=== PATIENT | female | born 1940 | race Caucasian/White ===

== ENCOUNTER 2019-09-24 04:36 | Inpatient (IN) | payer MEDICARE, SELFPAY ==
[2019-09-24 05:08] LABS: #Eosinphils 0.1 thou/uL (0.0-0.7); #Lymphocytes 0.6 thou/uL (1.20-3.40); #Monocytes 0.1 thou/uL (0.11-0.59); #Neutrophils 4.2 thou/uL (1.40-6.50); %Eosinophils 1.1 % (0.0-10.0); %Lymphocytes 12.8 % (21.0-51.0); %Monocytes 2.7 % (0.0-10.0); %Neutrophils 83.4 % (42.0-75.0); Hemoglobin 11.2 g/dL (12.0-16.0); Mean Corpuscular HGB CONC 33.3 g/dL (32.0-36.0); Mean Corpuscular Hemoglobin 31.6 pg (27.0-31.0); Mean Corpuscular Volume 94.8 fL (78.0-98.0); Mean Platelet Volume 7.1 fL (7.4-10.4); Platelet Count 323 thou/uL (130-400); RBC Distribution Width 12.9 % (11.5-14.5); Red Blood Cell (RBC) Count 3.54 mill/uL (4.20-5.40)
[2019-09-24 05:20] LABS: ALT (SGPT) Less than 7 U/L (8-55); AST (SGOT) 16 U/L (5-34); Albumin 3.3 g/dL (3.4-4.8); Alkaline Phosphatase 67 U/L (40-110); Anion Gap 13 mmol/L (10-20); BUN (Urea Nitrogen) 9 mg/dL (9.8-20.1); Bilirubin, Total 0.8 mg/dL (0.2-1.2); Calc. Creatinine Clearance 0 mL/min (70-130); Calcium 8.6 mg/dL (7.8-10.44); Carbon Dioxide 24 mmol/L (23-31); Chloride 103 mmol/L (98-107); Estimated GFR-MDRD 74; Globulin 3.5 g/dL (2.4-3.5); Glucose 121 mg/dL (83-110); Potassium 3.6 mmol/L (3.5-5.1); Protein, Total 6.8 g/dL (6.0-8.3); Sodium 136 mmol/L (136-145)
[2019-09-24] MEDS ORDERED: Piperacillin/Tazobactam 3.375 GM VIAL ONE ×3 (06:19→12:23)
[2019-09-24] MEDS ORDERED: Fentanyl 100 MCG/2 ML VIAL ONE ×2 (06:19→10:27)
--- NOTE | 2019-09-24 08:23 | CT ---
CT OF THE CHEST WITH CONTRAST CT OF THE ABDOMEN AND PELVIS WITH CONRAST: HISTORY: Shortness of breath, right rib pain, and abdominal pain. TECHNIQUE: 1. Multiple contiguous axial images were obtained in a CT of the chest with contrast. Sagittal and coronal reformats were performed. 2. Multiple contiguous axial images were obtained in a CT of the abdomen and pelvis with contrast. Sagittal and coronal reformats were performed. FINDINGS: CT CHEST: Severe emphysematous changes are seen in the lungs. No focal infiltrates are seen. No suspicious pu lmonary mass is seen. No pneumothorax or pleural effusions are seen. The bones of the chest and chest wall soft tissues are unremarkable. CT ABDOMEN/PELVIS: A moderate amount of free air is seen scattered throughout the abdomen. There is a small amount of f ree fluid in the pelvis which has a questionable rim around it and could be loculated fluid. The sma ll bowel is normal in caliber without significant distention. There is a focal collection of air cheri t is nondependent adjacent to the duodenum. The stomach is normal in size. The colon is normal in a ppearance. The liver, gallbladder, kidneys, adrenal glands, spleen, and pancreas are unremarkable. Atherosclero tic calcifications are seen in the aorta. No abdominal or pelvic lymphadenopathy is seen. There is a 1.5 cm hypodensity along the left pelvic sidewall which could represent a cyst/follicle in the left ovary. The uterus is not seen and may have been removed. Degenerative changes are seen in the spine. The abdominal wall soft tissues are unremarkable. IMPRESSION: 1. Severe emphysema without acute intrathoracic abnormality. 2. There is free air in the abdomen most likely secondary to a perforated viscous. The cause for th is perforation is uncertain. However, there is a collection of air adjacent to the duodenum and a pe rforated gastric or duodenal ulcer is a possibility. Dr. Wade notified of the findings at 6:09 a.m. on 09/24/2019. CODE CR
--- NOTE | 2019-09-24 08:57 | RAD ---
EXAM: Single view of the chest HISTORY: Free air in the abdomen on CT COMPARISON: CT abdomen/pelvis 09/24/2019 FINDINGS: Single view of the chest shows a normal sized cardiomediastinal silhouette. Free air is se en beneath both hemidiaphragms. There is no evidence of consolidation, mass, or pleural effusion. The bones are unremarkable. IMPRESSION: 1. No evidence of acute cardiopulmonary disease 2. Free air beneath both hemidiaphragms
[2019-09-24] MEDS ORDERED: Pantoprazole 40 MG VIAL IVP SCH (09:15)
[2019-09-24] MEDS ORDERED: Ondansetron PF 4 MG/2 ML Vial ONE (09:32)
[2019-09-24] MEDS ORDERED: Dexamethasone 20 MG/5 ML VIAL ONE (09:32)
[2019-09-24] MEDS ORDERED: Rocuronium Bromide 10 MG/ML (10ML VIAL) ONE (09:32)
[2019-09-24] MEDS ORDERED: PHENYLEPHRINE-NS 100 MCG/ML 10 ML SYRINGE ONE (09:32)
[2019-09-24] MEDS ORDERED: Succinylcholine Chloride 20 MG/ML 10 ml SYRINGE FS ONE (09:32)
[2019-09-24] MEDS ORDERED: Lidocaine 1% PF 5 ML VIAL ONE (09:32)
[2019-09-24] MEDS ORDERED: PROPOFOL 200 MG/20 ML VIAL ONE (09:32)
[2019-09-24] MEDS ORDERED: Bupivacaine 0.25% HCL 30 ML VIAL ONE (10:26)
[2019-09-24] MEDS ORDERED: Lidocaine 1% w/Epinephrine 1:100K 20 ML VIAL ONE (10:26)
[2019-09-24] MEDS ORDERED: Sodium Chloride 0.9% 30 ML ONE (10:40)
[2019-09-24] MEDS ORDERED: Phenylephrine 10 MG/ML VIAL ONE (11:17)
[2019-09-24] MEDS ORDERED: Meperidine HCl/PF 25 MG/ML VIAL SLOW IVP PRN (12:46)
[2019-09-24] MEDS ORDERED: Promethazine HCl 25 MG/ML VIAL SLOW IVP PRN (12:46)
[2019-09-24] MEDS ORDERED: SUGAMMADEX SODIUM 500 MG/5 ML VIAL ONE (12:54)
[2019-09-24] MEDS ORDERED: Lorazepam 2 MG/ML VIAL SLOW IVP PRN (13:48)
[2019-09-24] MEDS ORDERED: Dextrose 5% in Water 1,000 ML IV PRN (13:48)
[2019-09-24] MEDS ORDERED: Ondansetron PF 4 MG/2 ML Vial IVP PRN (13:48)
[2019-09-24] MEDS ORDERED: Dextrose 50% Abboject 50 ML SYRINGE SLOW IVP PRN (13:48)
[2019-09-24] MEDS ORDERED: hydrALAZINE 20 MG/ML VIAL SLOW IVP PRN (13:48)
[2019-09-24] MEDS ORDERED: Iopamidol 370 76% 100 ML VIAL ONE (13:51)
--- NOTE | 2019-09-24 14:01 | RAD ---
EXAM: Single view of the abdomen HISTORY: Status post exploratory laparotomy for free air. COMPARISON: CT abdomen/pelvis 09/24/2019 FINDINGS: Single view of the abdomen shows a nonspecific, nonobstructive bowel gas pattern. An NG tub e is seen in the stomach. A drain is seen in the upper abdomen. Contrast is seen in the urinary collecting system from recent CT. No suspicious calcifications are seen. The bones are unremarkable . IMPRESSION: Nonobstructive bowel gas pattern.
--- NOTE | 2019-09-24 14:02 | RAD ---
EXAM: Chest one view: HISTORY: Status post exploratory lap. COMPARISON: 09/24/2019 FINDINGS: NG tube and right subclavian catheter is in place. Hyperinflation and chronic appearing linear and interstitial markings bilaterally. Heart size: Within normal limits. Lungs: Clear of acute process. No evidence for confluent pneumonia, pleural effusion, acute edema, or pneumothorax, or other signifi cant acute process. IMPRESSION: NG tube and right central line in place. No pneumothorax or other acute process.
[2019-09-24] MEDS ORDERED: D5 1/2 NS w/20 mEq KCL 1,000 ML ONE (14:28)
[2019-09-24] MEDS ORDERED: Calcium Chloride 1 GM/10 ML Abboject SYRINGE ONE (14:38)
--- NOTE | 2019-09-24 16:18 | CON ---
DATE OF CONSULTATION: HISTORY OF PRESENT ILLNESS: Ms. Soler is a 79-year-old female who was admitted with perforated ulcer. She has undergone surgical repair. She is coming to the ICU. I examined her in recovery room. She has been extubated. PAST MEDICAL HISTORY: Remarkable for COPD, asthma, hypertension, and an appendectomy, smoker, pack-a-day. Not a daily drinker. ALLERGIES: THERE ARE NO DRUG ALLERGIES REPORTED. REVIEW OF SYSTEMS: Not obtainable as she is still somnolent from surgery. PHYSICAL EXAMINATION: VITAL SIGNS: Blood pressure is 120 systolic range. Heart rates less than 100, respiratory rate is in the teens. GENERAL: She looks much older than her age. HEENT: Pupils are equal. Sclerae are anicteric. NECK: Without lymphadenopathy. LUNGS: Remarkable for distant breath sounds. She is very cachectic appearing. She is not wheezing. HEART: Regular rhythm. ABDOMEN: Postoperatively distended. EXTREMITIES: Without clubbing, cyanosis, or edema. NEURO: Cannot be assessed. IMPRESSION: Status post perforated ulcer requiring semi-emergent surgery. She will be observed in the Critical Care Unit, appears to be stable at this time. Job ID: [id number] [facility]
[2019-09-24] MEDS: D5 1/2 NS w/20 mEq KCL 1,000 ML IV SCH ×2 (17:34→21:43)
[2019-09-24] MEDS: Sodium Chloride 0.9% 1,000 ML IV SCH ×2 (17:34→21:15)
[2019-09-24] MEDS: Fluconazole In NaCl,Iso-Osm 400 MG in Premix Bag 1 BAG IVPB SCH (18:36)
[2019-09-24] MEDS: Pantoprazole 40 MG VIAL IVP SCH (21:43)
[2019-09-24] MEDS ORDERED: Sodium Chloride 0.9% 1,000 ML IV SCH (21:45)
--- NOTE | 2019-09-24 22:20 | OP ---
DATE OF PROCEDURE: 09/24/2019 PREOPERATIVE DIAGNOSIS: Perforated viscus. POSTOPERATIVE DIAGNOSIS: Perforated peptic ulcer disease in the pyloric channel. PROCEDURE PERFORMED: Exploratory laparoscopy with laparoscopic repair of perforated pyloric channel ulcer with omental patch, extensive washout of diffuse peritonitis, placement of intraabdominal drain, placement of right subclavian 7-Turkish triple-lumen central line. ANESTHESIA: General endotracheal. INDICATIONS: The patient is a 79-year-old white female. She had presented to the emergency room with acute abdominal pain. CT scan shows extensive intraabdominal air and fluid consistent with perforated bowel. Based on her presentation, I suspected this was the perforated peptic ulcer. She was taken to the operating room at this time for planned laparoscopy with attempt to identify and repair the problems laparoscopically. DESCRIPTION OF OPERATION: Informed consent was obtained and patient was taken to the operating room, where general endotracheal anesthesia was obtained with the patient in supine position. She had been hypotensive preoperatively and she was being put to sleep. I decided to place a central line for appropriate IV access, as well as postoperative monitoring. A right subclavian 7-Turkish triple-lumen central line was placed uneventfully using modified Seldinger technique. Each of the three lumens aspirated blood freely and was flushed with heparinized saline. The catheter was secured at the exit site with 3-0 silk suture and sterile occlusive dressing was placed. Abdomen was prepped with ChloraPrep and draped in sterile fashion. Local anesthetic was infiltrated using a mixture of 0.5% Marcaine and 1% lidocaine with epinephrine. Three 5 mm ports were placed, one at the umbilicus and one on either side of midline. Attention was turned within the abdominal cavity. There was diffuse peritonitis recognized. There was extensive fibrinous debris in the pelvis as well as the right upper quadrant, left upper quadrant and the subhepatic space. The intraabdominal fluid was aspirated and the fibrinous debris was removed to the extent that it was easy. Some of the fluid was aspirated and sent for culture. About 1 L of fluid was removed in total. I then elevated the left lobe of the liver and fairly quickly identified the perforation in the distal stomach and approximately the pyloric channel. This ulcer appeared to be about 6 or 7 mm in diameter with obvious clear borders. I placed a 4th port in the right lower abdomen. The left lobe of the liver was elevated using a grasper, held in place with a Vasu's arm. Her liver was clearly fibrotic and cirrhotic. The ulcer was closed with four interrupted sutures of 3-0 silk. The omentum was easily reflected up into the upper abdomen. A corner of the right side of the omentum was secured over the ulcer repair site and it was tacked in place with 3 additional sutures of 3-0 silk. The abdominal cavity was then irrigated with 6 L of saline. All irrigant was aspirated. A #19 round fluted drain was then brought out through the right lower port site, where it was secured with a 3-0 nylon suture. It was then passed up over the repair site in the subhepatic space. All ports and instruments were removed under direct vision. Pneumoperitoneum was carefully evacuated. 0.25% Marcaine with epinephrine was infiltrated at each port site. Skin edges approximated with 4-0 Monocryl subcuticular suture. Dermabond was placed externally and a gauze dressing was placed over the drain site. Nasogastric tube and Gabriel catheter were left in place. The patient was taken to recovery room and extubated in stable condition. Job ID: [id number]
[2019-09-25] MEDS: Sodium Chloride 0.9% 1,000 ML IV SCH ×2 (00:50→05:24)
[2019-09-25 03:33] LABS: #Lymphocytes 0.2 thou/uL (1.20-3.40); #Monocytes 0.3 thou/uL (0.11-0.59); #Neutrophils 3.8 thou/uL (1.40-6.50); %Basophils 0.3 % (0.0-1.0); %Eosinophils 0.1 % (0.0-10.0); %Lymphocytes 5.1 % (21.0-51.0); %Monocytes 5.8 % (0.0-10.0); %Neutrophils 88.7 % (42.0-75.0); Mean Corpuscular HGB CONC 32.9 g/dL (32.0-36.0); Mean Corpuscular Hemoglobin 31.9 pg (27.0-31.0); Mean Corpuscular Volume 96.9 fL (78.0-98.0); Platelet Count 132 thou/uL (130-400); RBC Distribution Width 12.8 % (11.5-14.5); Red Blood Cell (RBC) Count 2.49 mill/uL (4.20-5.40); White Blood Cell (WBC) Count 4.3 thou/uL (4.8-10.8)
[2019-09-25 03:59] LABS: ALT (SGPT) Less than 7 U/L (8-55); AST (SGOT) 17 U/L (5-34); Albumin 2.3 g/dL (3.4-4.8); Alkaline Phosphatase 35 U/L (40-110); Anion Gap 7 mmol/L (10-20); BUN (Urea Nitrogen) 11 mg/dL (9.8-20.1); Bilirubin, Total 0.5 mg/dL (0.2-1.2); Calc. Creatinine Clearance 51 mL/min (70-130); Calcium 7.9 mg/dL (7.8-10.44); Carbon Dioxide 23 mmol/L (23-31); Chloride 109 mmol/L (98-107); Estimated GFR-MDRD 77; Globulin 2.5 g/dL (2.4-3.5); Glucose 132 mg/dL (83-110); Potassium 4.1 mmol/L (3.5-5.1); Protein, Total 4.8 g/dL (6.0-8.3); Sodium 135 mmol/L (136-145)
[2019-09-25] MEDS: D5 1/2 NS w/20 mEq KCL 1,000 ML IV SCH ×3 (06:23→18:00)
--- NOTE | 2019-09-25 08:21 | RAD ---
EXAM: CHEST ONE VIEW HISTORY: COPD. Follow-up evaluation. COMPARISON: 09/24/2019 FINDINGS: Nasogastric tube and right subclavian catheter remain in place. Linear metallic density overlies the medial right upper lung zone which may be related to overlying artifact. Cardiac silhouette and pulmonary vasculature are within normal limits. There are persistent increased interstitial markings within the lungs bilaterally. Vascular calcifications are seen in the thoracic aorta. Osteopenia is present. No other interval change. IMPRESSION: 1. Mild increase in interstitial markings is overall nonspecific and could be related to mild chronic lung changes. However, an element of mild pulmonary edema or infectious process is a possibility. 2. Nasogastric tube in place. 3. Right subclavian central venous catheter in place which may be related to a Mediport. 4. Osteopenia.
[2019-09-25] MEDS: Pantoprazole 40 MG VIAL IVP SCH ×2 (08:35→21:25)
[2019-09-25] MEDS: Enoxaparin Sodium 30 MG/0.3 ML SYRINGE SC SCH (08:35)
[2019-09-25] MEDS ORDERED: FLU VACC TS2019-20(65YR UP)/PF 180 MCG/0.5 ML SYRINGE IM ONE (09:00)
[2019-09-25] MEDS ORDERED: Morphine 4 MG/ML VIAL SLOW IVP SCH (09:30)
[2019-09-25] MEDS ORDERED: Morphine 4 MG/ML VIAL SLOW IVP PRN (10:51)
--- NOTE | 2019-09-25 12:07 | PRG ---
DATE OF SERVICE: 09/25/2019 SUBJECTIVE: Ms. Soler has no new complaints. OBJECTIVE: VITAL SIGNS: She is afebrile, heart rate is in the 70s, blood pressure 113/38, respiratory rate is in the teens . Lungs are clear. Heart regular rhythm. Abdomen is mildly tender. Extremities without asymmetry or edema. Neuro is nonfocal. LABORATORY DATA: White count 4.3, hemoglobin 8.0, platelets 132. Sodium 135, potassium 4.1, chloride 109, bicarb 23, BUN 11 and creatinine 0.73. IMPRESSION: 1. Blood loss anemia. 2. ? chronic obstructive pulmonary disease. 3. Status post laparoscopy for perforated ulcer. 4. Cultures have been reviewed. 5. She has grown a yeast out of her peritoneal fluid and fluconazole is already on board. 6. She appears surprisingly stable. Job ID: [id number] [facility]
[2019-09-25] MEDS ORDERED: CEFAZOLIN 1 GM in Sodium Chloride 0.9% 100 ML IVPB SCH (14:45)
--- NOTE | 2019-09-25 15:04 | PRG ---
DATE OF SERVICE: 09/25/2019 SUBJECTIVE: Ms. Soler is postoperative day #1 from a laparoscopic repair of perforated duodenal ulcer with an omental patch. A drain was left at the time of surgery. This has continued to drain fluid. It is light pink and opaque. There was 340 mL out overnight. She has no complaints other than thirst and hunger. She notes that her abdominal pain is much better. OBJECTIVE: VITAL SIGNS: Temperature is 98.2, pulse is 56, and blood pressure is 103/46. LUNGS: Clear to auscultation, although she coughs with deep breath. HEART: Regular rate and rhythm without murmur. ABDOMEN: Soft. Bowel sounds are present, but hypoactive. Incisions are healing nicely. LABORATORY DATA: Her white blood cell count is 4.3, hemoglobin is 8.0, and platelet count is 132. All of these values are likely related to dilution. There was essentially no blood loss during the surgery. Chemistry profile reveals electrolytes with minimal irregularity or abnormality. ASSESSMENT AND PLAN: The patient is medically stable. We will continue all current therapy, except I will remove her nasogastric tube and her Gabriel catheter. She is stable for transfer to the surgical floor. Continue to encourage ambulation with physical therapy. I will allow her to continue to have ice chips for now, and if she has better bowel sounds on examination, then may be clear liquids tomorrow. Job ID: [id number]
[2019-09-25] MEDS: Morphine 2 MG/ML SYRINGE SLOW IVP PRN (15:12)
[2019-09-25] MEDS: Fluconazole In NaCl,Iso-Osm 400 MG in Premix Bag 1 BAG IVPB SCH (17:59)
[2019-09-25] MEDS: CEFAZOLIN 1 GM in Sodium Chloride 0.9% 100 ML IVPB SCH (21:25)
[2019-09-26] MEDS: D5 1/2 NS w/20 mEq KCL 1,000 ML IV SCH (04:54)
[2019-09-26 05:38] LABS: #Lymphocytes 0.3 thou/uL (1.20-3.40); #Monocytes 0.3 thou/uL (0.11-0.59); #Neutrophils 4.5 thou/uL (1.40-6.50); %Basophils 0.4 % (0.0-1.0); %Eosinophils 0.3 % (0.0-10.0); %Lymphocytes 5.2 % (21.0-51.0); %Neutrophils 88.1 % (42.0-75.0); Hemoglobin 7.5 g/dL (12.0-16.0); Mean Corpuscular HGB CONC 32.6 g/dL (32.0-36.0); Mean Corpuscular Hemoglobin 31.3 pg (27.0-31.0); Mean Platelet Volume 7.4 fL (7.4-10.4); Platelet Count 137 thou/uL (130-400); Red Blood Cell (RBC) Count 2.39 mill/uL (4.20-5.40); White Blood Cell (WBC) Count 5.1 thou/uL (4.8-10.8)
[2019-09-26] MEDS: CEFAZOLIN 1 GM in Sodium Chloride 0.9% 100 ML IVPB SCH (05:52)
[2019-09-26] MEDS: Morphine 2 MG/ML SYRINGE SLOW IVP PRN ×3 (05:52→18:21)
[2019-09-26 06:40] LABS: Anion Gap 7 mmol/L (10-20); BUN (Urea Nitrogen) 9 mg/dL (9.8-20.1); Calc. Creatinine Clearance 59 mL/min (70-130); Calcium 7.9 mg/dL (7.8-10.44); Carbon Dioxide 22 mmol/L (23-31); Chloride 109 mmol/L (98-107); Estimated GFR-MDRD 87; Glucose 105 mg/dL (83-110); Potassium 4.3 mmol/L (3.5-5.1); Sodium 134 mmol/L (136-145)
[2019-09-26] MEDS: Enoxaparin Sodium 30 MG/0.3 ML SYRINGE SC SCH (08:42)
[2019-09-26] MEDS: Pantoprazole 40 MG VIAL IVP SCH ×2 (08:46→22:51)
--- NOTE | 2019-09-26 09:58 | EKG ---
Test Reason : Blood Pressure : / mmHG Vent. Rate : 075 BPM Atrial Rate : 075 BPM P-R Int : 162 ms QRS Dur : 078 ms QT Int : 418 ms P-R-T Axes : 063 080 093 degrees QTc Int : 466 ms Normal sinus rhythm Abnormal ECG Confirmed by DIEGO THORPE M.D. ([id number]), editor managing newspaper YANET MEDINA ([id number]) on 09/26/2019 9:57:59 AM Referred By: Confirmed By:DIEGO THORPE M.D.
--- NOTE | 2019-09-26 11:58 | PRG ---
DATE OF SERVICE: 09/26/2019 SUBJECTIVE: Sophia Soler is 2 days status post laparoscopic suturing of a perforated ulcer with omental patch. The patient has still not had any flatus or stool. She has not had any nausea or vomiting. She is on ice chips only. Drain is serous in nature. The patient is asking for food again. Dr. Ruiz has explained to her the situation. The patient's cultures, peritoneal fluid, gram-positive rods. species. She is on Diflucan and Ancef. Blood cultures negative to date. Home reconciliation medications pending. She is from [place] and we cannot obtain the medication list. OBJECTIVE: VITAL SIGNS: Temperature 98 degrees, pulse 65, blood pressure 101/56. LUNGS: Clear to auscultation. No wheezing. CARDIAC: Regular rate and rhythm. ABDOMEN: Soft, distended, tympanitic, quiet, drain serous. EXTREMITIES: No edema. LABORATORY DATA: Sodium 134, potassium 4.3, BUN 9, white count 5, hemoglobin 7.5. ASSESSMENT AND PLAN: 1. Ileus. Await gastrointestinal function. Continue sips and chips only. 2. Adjust IV fluids for hyponatremia. 3. Anemia. Follow serial hemoglobins. 4. Continue to remind the patient the importance of n.p.o. and sips and chips only at this time. Job ID: [id number]
[2019-09-26] MEDS: Sodium Chloride 0.9% 1,000 ML IV SCH ×3 (12:54→23:09)
--- NOTE | 2019-09-26 13:11 | PRG ---
DATE OF SERVICE: 09/26/2019 SUBJECTIVE: The patient's breathing okay, mainly complains about hunger. OBJECTIVE: VITAL SIGNS: Temperature 97.9, pulse 66, respirations 16, O2 saturation 94% on room air, and blood pressure 130/56. HEENT: Unremarkable. NECK: No adenopathy or JVD. LUNGS: Clear. ABDOMEN: Slightly protuberant. Bowel sounds diminished. EXTREMITIES: No edema. ASSESSMENT: 1. Ileus. 2. Chronic obstructive pulmonary disease. PLAN: Continue current supportive care. Dr. Gomez will recheck the patient on Saturday. Job ID: [id number]
[2019-09-26] MEDS: Fluconazole In NaCl,Iso-Osm 400 MG in Premix Bag 1 BAG IVPB SCH (17:50)
[2019-09-27 05:54] LABS: #Lymphocytes 0.3 thou/uL (1.20-3.40); #Monocytes 0.2 thou/uL (0.11-0.59); #Neutrophils 4.3 thou/uL (1.40-6.50); %Eosinophils 0.9 % (0.0-10.0); %Lymphocytes 5.1 % (21.0-51.0); Hemoglobin 7.8 g/dL (12.0-16.0); Mean Corpuscular HGB CONC 33.8 g/dL (32.0-36.0); Mean Corpuscular Hemoglobin 31.5 pg (27.0-31.0); Mean Corpuscular Volume 93.2 fL (78.0-98.0); Mean Platelet Volume 6.9 fL (7.4-10.4); Platelet Count 125 thou/uL (130-400); RBC Distribution Width 13.1 % (11.5-14.5); Red Blood Cell (RBC) Count 2.47 mill/uL (4.20-5.40); White Blood Cell (WBC) Count 4.9 thou/uL (4.8-10.8)
[2019-09-27 06:14] LABS: Anion Gap 8 mmol/L (10-20); BUN (Urea Nitrogen) 6 mg/dL (9.8-20.1); Calc. Creatinine Clearance 59 mL/min (70-130); Calcium 7.6 mg/dL (7.8-10.44); Carbon Dioxide 24 mmol/L (23-31); Chloride 105 mmol/L (98-107); Estimated GFR-MDRD 87; Glucose 77 mg/dL (83-110); Magnesium 1.6 mg/dL (1.6-2.6); Sodium 133 mmol/L (136-145)
[2019-09-27] MEDS: Enoxaparin Sodium 30 MG/0.3 ML SYRINGE SC SCH (09:41)
[2019-09-27] MEDS: Pantoprazole 40 MG VIAL IVP SCH ×2 (09:46→21:56)
--- NOTE | 2019-09-27 15:49 | PRG ---
DATE OF SERVICE: 09/27/2019 SUBJECTIVE: Sophia Soler is doing well today. She is seen for Dr. Ruiz. The patient is status post perforated ulcer, treated laparoscopically. The patient feels much better today. She has not had any nausea or vomiting. She has not passed any flatus. KRYSTEN 585 mL, serous. LUNGS: Clear to auscultation. CARDIAC: Regular rhythm. No murmur or gallop. ABDOMEN: Soft. Good bowel sounds. Nontender. Much less tender than yesterday, nondistended. VITAL SIGNS: Temperature 98.2 degrees, pulse 72, and blood pressure 126/63. LABORATORY DATA: White count 4 and hemoglobin 7.8. Basic metabolic profile is normal. Sodium 133. ASSESSMENT AND PLAN: Doing well after laparoscopic repair of perforated ulcer. We would start liquids. We would go slow on her diet advancement. Increase activities. Job ID: [id number]
[2019-09-27] MEDS: Fluconazole In NaCl,Iso-Osm 400 MG in Premix Bag 1 BAG IVPB SCH (17:25)
[2019-09-27] MEDS: Sodium Chloride 0.9% 1,000 ML IV SCH (21:57)
[2019-09-28] MEDS: Sodium Chloride 0.9% 1,000 ML IV SCH (06:05)
[2019-09-28 06:18] LABS: #Eosinphils 0.1 thou/uL (0.0-0.7); #Lymphocytes 0.3 thou/uL (1.20-3.40); #Monocytes 0.3 thou/uL (0.11-0.59); #Neutrophils 2.7 thou/uL (1.40-6.50); %Eosinophils 1.9 % (0.0-10.0); %Lymphocytes 8.3 % (21.0-51.0); %Monocytes 9.9 % (0.0-10.0); Hemoglobin 7.8 g/dL (12.0-16.0); Mean Corpuscular HGB CONC 34.1 g/dL (32.0-36.0); Mean Corpuscular Hemoglobin 31.4 pg (27.0-31.0); Mean Corpuscular Volume 91.9 fL (78.0-98.0); Mean Platelet Volume 6.7 fL (7.4-10.4); Platelet Count 138 thou/uL (130-400); RBC Distribution Width 13.3 % (11.5-14.5); White Blood Cell (WBC) Count 3.4 thou/uL (4.8-10.8)
[2019-09-28 06:38] LABS: Anion Gap 10 mmol/L (10-20); BUN (Urea Nitrogen) 4 mg/dL (9.8-20.1); Calc. Creatinine Clearance 63 mL/min (70-130); Calcium 7.5 mg/dL (7.8-10.44); Carbon Dioxide 25 mmol/L (23-31); Chloride 105 mmol/L (98-107); Estimated GFR-MDRD Greater than 90; Glucose 88 mg/dL (83-110); Sodium 137 mmol/L (136-145)
[2019-09-28 06:45] LABS: Potassium 2.9 mmol/L (3.5-5.1)
[2019-09-28 07:38] LABS: Fungus Stain Final report (.)
[2019-09-28] MEDS: NS 0.9% w/ 20 MEQ KCL 1,000 ML IV SCH (08:51)
[2019-09-28] MEDS: Potassium Chloride 20 MEQ TAB PO SCH ×2 (08:52→12:19)
[2019-09-28] MEDS: Pantoprazole 40 MG VIAL IVP SCH ×2 (08:52→20:05)
[2019-09-28] MEDS: Enoxaparin Sodium 30 MG/0.3 ML SYRINGE SC SCH (08:52)
[2019-09-28] MEDS: Morphine 2 MG/ML SYRINGE SLOW IVP PRN (12:46)
--- NOTE | 2019-09-28 14:49 | PRG ---
DATE OF SERVICE: 09/28/2019 SUBJECTIVE: Ms. Soler is postoperative day #4 from a laparoscopic repair of perforated duodenal ulcer with an omental patch. A drain is left in the abdomen and continues to have substantial output. The drainage material appears to be serous. She tells me that she tried some clear liquids earlier today and had pain in her abdomen afterwards. She was also given oral potassium which may have contributed to her discomfort. She denies bowel movement. She does believe she has had flatus. OBJECTIVE: VITAL SIGNS: She is afebrile, pulse 73, blood pressure is 115/62. LUNGS: Clear to auscultation. ABDOMEN: Appears to potentially be a little bit distended. Incisions are healing nicely. Bowel sounds are present, but appear to be a little bit tympanitic. EXTREMITIES: Unremarkable. LABORATORY DATA: White blood cell count is 3.4, which is relatively normal for her. Hemoglobin 7.8. Chemistries reveal that her potassium is low at 2.9. This was treated with oral potassium. Creatinine is normal at 0.6. ASSESSMENT AND PLAN: The patient is stable after repair of perforated ulcer. She had yeast within her abdomen and continues to receive Diflucan. I will treat her low potassium level and check an abdominal x-ray and try an enema to see if this stimulates bowel activity. Job ID: [id number]
--- NOTE | 2019-09-28 15:11 | RAD ---
ABDOMEN 1 VIEW: HISTORY: Suspected ileus. COMPARISON: Radiograph 09/24/2019. FINDINGS: Multiple distended loops of small and large bowel in the abdomen. Evaluation for free air is limited without an upright exam. A catheter projects over the right hemiabdomen. IMPRESSION: Findings of suspected ileus. POS: [facility]
[2019-09-28] MEDS ORDERED: Fleet Enema 133 ML BOT PR SCH (16:15)
[2019-09-28] MEDS: Fluconazole In NaCl,Iso-Osm 400 MG in Premix Bag 1 BAG IVPB SCH (17:45)
[2019-09-29] MEDS: Morphine 2 MG/ML SYRINGE SLOW IVP PRN ×2 (03:39→06:34)
[2019-09-29 04:42] LABS: #Eosinphils 0.1 thou/uL (0.0-0.7); #Lymphocytes 0.3 thou/uL (1.20-3.40); #Monocytes 0.4 thou/uL (0.11-0.59); #Neutrophils 2.5 thou/uL (1.40-6.50); %Basophils 0.2 % (0.0-1.0); %Eosinophils 3.1 % (0.0-10.0); %Lymphocytes 9.3 % (21.0-51.0); %Monocytes 10.6 % (0.0-10.0); %Neutrophils 76.7 % (42.0-75.0); Hemoglobin 7.8 g/dL (12.0-16.0); Mean Corpuscular HGB CONC 34.2 g/dL (32.0-36.0); Mean Corpuscular Hemoglobin 31.7 pg (27.0-31.0); Mean Corpuscular Volume 92.7 fL (78.0-98.0); Mean Platelet Volume 6.7 fL (7.4-10.4); Platelet Count 129 thou/uL (130-400); RBC Distribution Width 13.5 % (11.5-14.5); Red Blood Cell (RBC) Count 2.45 mill/uL (4.20-5.40); White Blood Cell (WBC) Count 3.3 thou/uL (4.8-10.8)
[2019-09-29 05:02] LABS: Anion Gap 11 mmol/L (10-20); BUN (Urea Nitrogen) 4 mg/dL (9.8-20.1); Calc. Creatinine Clearance 62 mL/min (70-130); Calcium 7.4 mg/dL (7.8-10.44); Carbon Dioxide 24 mmol/L (23-31); Chloride 104 mmol/L (98-107); Estimated GFR-MDRD Greater than 90; Glucose 97 mg/dL (83-110); Potassium 3.8 mmol/L (3.5-5.1); Sodium 135 mmol/L (136-145)
[2019-09-29] MEDS: NS 0.9% w/ 20 MEQ KCL 1,000 ML IV SCH (08:54)
[2019-09-29] MEDS ORDERED: Acetaminophen 325 MG TAB PO PRN (08:58)
--- NOTE | 2019-09-29 08:58 | PRG ---
DATE OF SERVICE: 09/29/2019 SUBJECTIVE: Ms. Soler is postoperative day #5 from laparoscopic repair of perforated duodenal ulcer with an omental patch. Drain remains in the abdomen coursing across the upper abdomen. It is draining a large volume of serous fluid. I suspect this is related to the cirrhosis that was recognized during her surgery. She tells me she has been drinking clear liquids uneventfully and has been voiding. She had a bowel movement when she had an enema yesterday. She notes minimal belching. OBJECTIVE: VITAL SIGNS: On examination today, she is afebrile. Pulse is 70, blood pressure 113/66. LUNGS: Clear to auscultation. ABDOMEN: A little distended compared to her normal scaphoid abdomen. Incisions are healing nicely. Drain in the right lower abdomen is draining clear serous fluid. The drain for yesterday drained 610 mL. LABORATORY DATA: Her CBC is stable with a white blood cell count of 3.3 and a hemoglobin of 7.8. Her chemistry panel is essentially normal. ASSESSMENT: She appears to be making progress. Since she is tolerating clear liquids, I will advance her to full liquids. I will remove her drain today but suspect that she may have a continued leak through her abdominal wall secondary to her very thin body habitus, poor tissue quality, and cirrhosis that is leading to fluid production in her abdomen. I will also decrease her IV fluid and place her on MiraLAX. Hopefully, she will be ready for discharge in the next couple of days. She appears to be doing fine from the surgery, but her chronic medical conditions are keeping her from progressing in a typical fashion. Job ID: [id number]
[2019-09-29] MEDS: Polyethylene Glycol 3350 17 GM Packet PO SCH (09:38)
[2019-09-29] MEDS: Enoxaparin Sodium 30 MG/0.3 ML SYRINGE SC SCH (09:38)
[2019-09-29] MEDS: Pantoprazole 40 MG VIAL IVP SCH ×2 (09:38→20:41)
[2019-09-29 11:00] LABS: Hep C IgG Ab Reflex HepC Qnt (NonReactive); Hep C Index 13.78 S/CO (0-0.79)
--- NOTE | 2019-09-29 12:35 | CON ---
DATE OF CONSULTATION: REASON FOR CONSULT: Cirrhosis. CONSULTING PHYSICIAN: Dr. Krystina Marroquin. HISTORY OF PRESENT ILLNESS: Ms. Soler is a pleasant 79-year-old female. She is admitted to the hospital on 09/23 for abdominal pain. She had a CAT scan of the chest, abdomen, and pelvis on admission that showed emphysema, free air in the abdomen, small amount of fluid in the pelvis. Liver, adrenal, and gallbladder appeared normal apparently. She went to the operating room with Dr. Ruiz and had a surgical repair the same day of a pyloric channel ulcer. There was clear cirrhosis of the liver. She has done well postoperatively, but apparently her KRYSTEN drain which was left in place had about 500 mL out a few days ago, it was removed. There was concern this maybe developing ascites. Presently, she has been started on a liquid diet. She denies abdominal pain. She states her abdomen is a little bit puffy. She has had no nausea or vomiting. She has no antecedent history of ulcer disease. As far as liver disease, she denies prior history of cirrhosis or any knowledge of liver disease or being told about this in the past. She does not typically go to the doctor. She did drink alcohol heavily until about 3 years ago and she stopped. She continues to smoke because she loves it. She did use IV drugs in the past, but does not now. She is not aware of any prior diagnosis of hepatitis C or B. PAST MEDICAL HISTORY: She denies any known prior medical issues. She used to take medicines for some thing, but she does not know why and she does not take them anymore. It seems she does have COPD and possibly history of hypertension. She denies a prior history of cardiac disease. PAST SURGICAL HISTORY: Appendectomy and hysterectomy. She is not aware of any cardiac surgeries. MEDICATIONS: At home are none. ALLERGIES: NONE. SOCIAL HISTORY: Positive for IV drug use in the past. Positive alcohol abuse, heavy until about 2 or 3 years ago. Positive continued smoking. FAMILY HISTORY: Negative for colorectal cancer or liver disease. REVIEW OF SYSTEMS: Negative for dysphagia, odynophagia, melena, hematochezia, hematemesis, excessive weight loss, prior screening colonoscopy, liver disease, rashes, peripheral edema, confusion, or ascites in the past. PRESENT MEDICATIONS: Tylenol, albuterol, IV fluids have been held, Lovenox, fluconazole hydralazine, p.r.n., Ativan, Zofran, Protonix IV q.12, MiraLAX p.r.n. PHYSICAL EXAMINATION: GENERAL: She is alert and oriented to person, place, and time. She is thin. She got some muscle wasting temporally. She is in no distress. She has no icterus or jaundice. VITAL SIGNS: Temperature max was 100 on the 22nd, presently 98.2; pulse 75; blood pressure 112/61. NECK: Supple without any adenopathy. There is no axillary adenopathy. LUNGS: Clear. HEART: Regular without murmurs. ABDOMEN: Soft. There is no overt hepatomegaly. There is slight fluid wave. Bowel sounds are positive. There is no drainage of fluid at the previous KRYSTEN site which is under bandage. I took that off and looked at, nor is erythematous. ABDOMEN: Nontender. There is no rebound or guarding. EXTREMITIES: No clubbing, cyanosis, or edema. She has no asterixis. There is mild palmar erythema present. She has diffuse spider angioma on the chest. LABORATORY STUDIES: White count 3.3; hemoglobin 7.8; platelet count 129, this was 323 on admission; MCV is 92. Sodium 135, potassium 3.8, chloride 104, bicarb 24, BUN and creatinine 4 and 0.6. AST and ALT are 17 and 7 on admission. Alkaline phosphatase 35. Total protein 4.3, albumin 2.3. Bilirubin was 0.5. Hepatitis C antibody is positive. ASSESSMENT: This is a 79-year-old female who presented with really minimal history of medical care in the past. There is significant risk factors for liver disease with alcohol abuse and IV drug abuse and a positive hepatitis C antibody here, who presented with a perforated ulcer which was repaired surgically. She does not have katlyn cirrhosis on her exam, but showed no signs of decompensation. Postoperatively, she has probably developed some ascites it seems and this has probably showed some mild decompensation of her liver disease. Her bilirubin and LFTs were normal on admission. Her hepatitis C antibody is positive here. Her CT scan on admission showed no overt evidence of liver masses. I have reviewed those films. They were performed with contrast. RECOMMENDATIONS: At this time, would place her on a low-sodium diet. We will monitor her weight daily. I am going to put her on a low dose of Aldactone that may help with some of her ascites and help with her hypokalemia. We would not add Lasix at this time. We will check an AFP as well and check daily weights and plan on rechecking her liver enzymes to make sure she has not had any severe decompensation of her liver disease since admission. We will follow along with you. Job ID: [id number]
[2019-09-29] MEDS: Fluconazole In NaCl,Iso-Osm 400 MG in Premix Bag 1 BAG IVPB SCH (17:27)
[2019-09-30 05:00] LABS: INR-International Normal Ratio 1.3; Prothrombin Time 16.3 SEC (12.0-14.7)
[2019-09-30 05:13] LABS: ALT (SGPT) Less than 7 U/L (8-55); AST (SGOT) 14 U/L (5-34); Albumin 2.2 g/dL (3.4-4.8); Alkaline Phosphatase 44 U/L (40-110); Anion Gap 7 mmol/L (10-20); BUN (Urea Nitrogen) 4 mg/dL (9.8-20.1); Bilirubin, Total 0.8 mg/dL (0.2-1.2); Calc. Creatinine Clearance 59 mL/min (70-130); Calcium 7.5 mg/dL (7.8-10.44); Carbon Dioxide 29 mmol/L (23-31); Chloride 103 mmol/L (98-107); Estimated GFR-MDRD 87; Globulin 2.8 g/dL (2.4-3.5); Glucose 103 mg/dL (83-110); Potassium 3.7 mmol/L (3.5-5.1); Sodium 135 mmol/L (136-145)
[2019-09-30] MEDS: Polyethylene Glycol 3350 17 GM Packet PO SCH (07:59)
[2019-09-30] MEDS: Enoxaparin Sodium 30 MG/0.3 ML SYRINGE SC SCH (08:00)
[2019-09-30] MEDS: Pantoprazole 40 MG VIAL IVP SCH (08:00)
--- NOTE | 2019-09-30 11:19 | CON ---
DATE OF CONSULTATION: 09/30/2019 HISTORY OF PRESENT ILLNESS: Ms. Soler has had no bowel movement. They have given her laxatives and going to give her enemas. She denies abdominal pain, nausea, or vomiting. She is eating well per the nurses. She is voiding. She is urinating well. She denies any edema in her legs, fever, shortness of breath, or cough. MEDICATIONS: 1. P.r.n. Tylenol. 2. P.r.n. DuoNeb. 3. IV fluids with Hep-Lock. 4. Lovenox 35 daily. 5. Fluconazole, continues. 6. Hydralazine p.r.n. 7. Ativan p.r.n. 8. Zofran p.r.n. 9. Protonix 40 IV q.12. 10. Polyethylene glycol daily. PHYSICAL EXAMINATION: VITAL SIGNS: Afebrile in the past 24 hours, temperature 97.4, pulse 85, and blood pressure 120/65. LUNGS: Clear. HEART: Regular rate and rhythm without clicks or murmurs. ABDOMEN: Soft and nontender. There is no discharge or drainage in her KRYSTEN site. There is no shifting dullness or fluid wave. EXTREMITIES: No clubbing, cyanosis, or edema. LABORATORY DATA: White count 3.3, hemoglobin 7.8 and stable, and platelet count 129. INR 1.3. Calcium 7.5, sodium 135, potassium 3.7, BUN and creatinine 4 and 0.6, protein is 5, albumin is 2.2, AST and ALT 14 and less than 7. AFP is less than 2. ASSESSMENT: 1. Cirrhosis, likely related to hepatitis C and alcohol use, compensated. 2. Abdominal distention, improved today. She is starting to pass gas. She does not appear to have any overt ascites. 3. Hepatitis C. This can be addressed in the outpatient setting at later date. Once she recovers from surgery, we can treat that. She will need hepatoma screening every 6 months. I have reviewed her CAT scan. There was a slight area of hypodensity in the left lobe of the liver. The radiologist felt as this vessels went through this area and did not push them out away. It was probably not a hepatoma and more likely fatty sparing, although there was no arterial phase imaging, so we could not check for arterial enhancement. AFP is normal. This will be repeated in 6 months. 4. Issues of edema and fluid retention. It seems that her fluid is very minimal at this time. I am going to go ahead and stop the Aldactone and I do not think she is going to take medicines when she goes home anyway. She will take blood pressure medicine. Hopefully, she can have a bowel movement, go home and follow up with us in 2 months. Job ID: [id number]
[2019-09-30 11:40] VITALS: BP 106/65; TEMP 97.5
[2019-09-30] MEDS ORDERED: Fleet Enema 133 ML BOT PR PRN (11:56)
--- NOTE | 2019-09-30 11:56 | PDOC.GSPN ---
Surgery Progress Note: Subj - Subjective Narrative: Patient is feeling weak and tired but is not having any nausea. She does still feel bloated but is trying to drink her MiraLAX and is passing lots of gas. She has had to change the dressing at her old port site 2 or 3 times during the night due to serous drainage. Vital signs are okay with blood pressure occasionally on the low side. Abdomen is slightly distended and tympanitic. Incisions look good. There is some serous drainage on her gauze. Assessment/plan: Status post Guillermo patch of perforated ulcer doing well overall. Still has an ileus. Has an ascites leak related to her cirrhosis and acute illness. Appreciate gastroenterology input and recommendations. Tolerating low-sodium diet. Enema if MiraLAX is unsuccessful. Monitor drainage from port site. May need to place a suture if this does not diminish. Surgery Progress Note: Obj - Vital signs Vital signs: Vital Signs - Most Recent Temp Pulse Resp BP Pulse Ox 97.5 F L 88 16 106/65 97 09/30/19 11:39 09/30/19 11:39 09/30/19 11:39 09/30/19 11:39 09/30/19 11:39 Surgery Progress Note: Results - Labs Result Diagrams: 09/29/19 04:32 09/30/19 04:30 Lab results: Laboratory Results - last 24 hr 09/30/19 09/30/19 09/30/19 04:30 04:30 04:30 PT 16.3 H INR 1.3 Sodium 135 L Potassium 3.7 Chloride 103 Carbon Dioxide 29 Anion Gap 7 L BUN 4 L Creatinine 0.66 Estimated GFR (MDRD) 87 Glucose 103 Calcium 7.5 L Total Bilirubin 0.8 AST 14 ALT Less than 7 L Alkaline Phosphatase 44 Serum Total Protein 5.0 L Albumin 2.2 L Globulin 2.8 Albumin/Globulin Ratio 0.8 L Tumor Marker AFP Less than 2.0
[2019-09-30 12:56] VITALS: BMI 17.6
[2019-10-01 12:13] LABS: Hep B Surface AG-Rflx Sendout Negative (Negative); Hepatitis B Core Total Negative (Negative); Hepatitis B Surface AB-Sendout Non Reactive (.)
[2019-10-01 18:37] LABS: H. pylori IgA ABS Less than 9.0 units (0.0-8.9); H. pylori IgG ABS 0.25 (0.00-0.79); H. pylori IgM ABS Less than 9.0 units (0.0-8.9)
== END 2019-09-30 14:55 | disposition home or self-care (01) | DRG 326 ==
LOC: ERS 04:36 → CCU 08:18 → SDC 08:18 → CCU 17:06 → SURG A 09-25 16:48
PROVIDERS: ADMIT Specialist; ATTEND Specialist
PROC: 0DU747Z Supplement Stomach, Pylorus with Autologous Tissue Substitute, Percutaneous Endoscopic Approach (ICD-10-PCS; principal; 2019-09-24)
PROC: 02HV33Z Insertion of Infusion Device into Superior Vena Cava, Percutaneous Approach (ICD-10-PCS; 2019-09-24)
DX: K26.5 Chronic or unspecified duodenal ulcer with perforation (principal); K65.9 Peritonitis, unspecified; B37.89 Other sites of candidiasis; K56.7 Ileus, unspecified; E87.1 Hypo-osmolality and hyponatremia; K70.31 Alcoholic cirrhosis of liver with ascites; B18.2 Chronic viral hepatitis C; I10 Essential (primary) hypertension; J43.9 Emphysema, unspecified; F17.210 Nicotine dependence, cigarettes, uncomplicated; D50.0 Iron deficiency anemia secondary to blood loss (chronic); Z90.49 Acquired absence of other specified parts of digestive tract; Z79.899 Other long term (current) drug therapy; Z28.21 Immunization not carried out because of patient refusal
CPT/HCPCS: 36415; 71045; 71260; 74018; 74177; 80048; 80053; 82105; 83605; 83735; 83880; 84484; 85025; 85610; 86704; 86705; 86706; 86707; 86803; 87040; 87070; 87102; 87116; 87205; 87206; 87340; 87350; 87522; 87633; 87804; 93005; 94640; 96361; 96365; 96375; C9113; J0690; J1100; J1450; J1650; J2001; J2060; J2270; J2370; J2405; J2543; J2704; J3010; J3480; J3490; J7620; Q9967; S0020

== ENCOUNTER 2019-10-07 09:47 | Inpatient (IN) | payer MEDICARE ==
[2019-10-07] MEDS ORDERED: Iopamidol-370 76% 500 ML 1 ML ONE (10:15)
[2019-10-07 10:32] LABS: #Lymphocytes 0.6 thou/uL (1.20-3.40); #Monocytes 0.7 thou/uL (0.11-0.59); #Neutrophils 8.9 thou/uL (1.40-6.50); %Basophils 0.4 % (0.0-1.0); %Eosinophils 0.2 % (0.0-10.0); %Lymphocytes 5.6 % (21.0-51.0); %Monocytes 6.7 % (0.0-10.0); %Neutrophils 87.2 % (42.0-75.0); Hemoglobin 10.2 g/dL (12.0-16.0); Mean Corpuscular Hemoglobin 29.7 pg (27.0-31.0); Mean Corpuscular Volume 90.2 fL (78.0-98.0); Mean Platelet Volume 6.7 fL (7.4-10.4); Platelet Count 417 thou/uL (130-400); RBC Distribution Width 14.3 % (11.5-14.5); Red Blood Cell (RBC) Count 3.43 mill/uL (4.20-5.40); White Blood Cell (WBC) Count 10.2 thou/uL (4.8-10.8)
[2019-10-07 10:47] LABS: ALT (SGPT) 9 U/L (8-55); AST (SGOT) 19 U/L (5-34); Albumin 2.8 g/dL (3.4-4.8); Alkaline Phosphatase 71 U/L (40-110); Anion Gap 12 mmol/L (10-20); BUN (Urea Nitrogen) 6 mg/dL (9.8-20.1); Bilirubin, Total 0.7 mg/dL (0.2-1.2); Calc. Creatinine Clearance 0 mL/min (70-130); Calcium 8.9 mg/dL (7.8-10.44); Carbon Dioxide 29 mmol/L (23-31); Chloride 99 mmol/L (98-107); Estimated GFR-MDRD 87; Globulin 4.4 g/dL (2.4-3.5); Glucose 110 mg/dL (83-110); Lipase 5 U/L (8-78); Potassium 3.6 mmol/L (3.5-5.1); Protein, Total 7.2 g/dL (6.0-8.3); Sodium 136 mmol/L (136-145)
[2019-10-07] MEDS ORDERED: Ondansetron ODT 4 MG TAB ONE (10:47)
[2019-10-07] MEDS ORDERED: Morphine 4 MG/ML VIAL ONE (10:47)
--- NOTE | 2019-10-07 11:14 | CT ---
EXAM: CT Abdomen Pelvis W Con PROVIDED CLINICAL HISTORY: Abdominal pain COMPARISON: 09/24/2019 FINDINGS: The visualized lung bases are free of significant opacity. There is mural thickening involving the visualized distal thoracic esophagus. The stomach is conspicu ously distended by fluid. Focus of mural gas is noted involving the region of the duodenum compatible with provided clinical history of ulcer. There is apparent mural edema involving the gastr ic antrum and proximal duodenum. There is minimal free intraperitoneal fluid present involving the right perihepatic and perisplenic r egions. There is no evidence for free intraperitoneal air. There is a poorly defined 1.9 cm hypodense mass involving the left hepatic lobe, similar to prior. Th e spleen, pancreas, kidneys and adrenal glands appear unremarkable. Conspicuous atherosclerosis is demonstrated. No regional lymph node enlargement is evident. The osseous structures demonstrate no concerning lytic or blastic lesions. IMPRESSION: 1. Conspicuous fluid distention of the stomach with apparent mural edema involving the antrum and pro ximal duodenum. Outlet obstruction cannot be excluded. 2. Mural thickening involving the visualized distal thoracic esophagus, which may reflect esophagitis . 3. Minimal free intraperitoneal fluid, without evidence for pneumoperitoneum. 4. Incompletely characterized 1.9 cm evidence left hepatic lobe mass, stable with respect to prior. N onemergent MRI is recommended.
[2019-10-07 11:42] LABS: Bilirubin Negative (Negative); Blood, Urine Negative (Negative); Clarity Turbid (Clear); Glucose, Urine (Dipstick) Normal (Negative); Leukocyte Negative Leu/uL (Negative); Nitrite Negative (Negative); Protein, Urine (Dipstick) 30 mg/dL (Neg-Trace); Squamous Epithelial 0-3 HPF (0-3); Urobilinogen Normal mg/dL (Less than 2); WBC/HPF 0-3 HPF (0-3)
[2019-10-07 11:43] LABS: Bacteria/HPF 1+ HPF (None Seen)
[2019-10-07] MEDS ORDERED: Piperacillin/Tazobactam 3.375 GM VIAL ONE (12:11)
[2019-10-07] MEDS ORDERED: Ondansetron PF 4 MG/2 ML Vial ONE (12:15)
[2019-10-07] MEDS ORDERED: D5 1/2 NS w/20 mEq KCL 1,000 ML IV SCH (13:18)
[2019-10-07] MEDS ORDERED: Acetaminophen 650 MG Suppository PR PRN (13:28)
[2019-10-07] MEDS ORDERED: Sodium Chloride 0.9% 1,000 ML IV SCH (13:30)
[2019-10-07] MEDS ORDERED: Sodium Chloride 0.9% (PF) 10 ML VIAL FS PRN (13:34)
[2019-10-07] MEDS: Albuterol Sulfate 2.5 mg/3 ml Neb NEB SCH ×2 (14:09→18:30)
--- NOTE | 2019-10-07 14:22 | CON ---
DATE OF CONSULTATION: 10/07/2019 CONSULTING PHYSICIAN: Rodriguez Duran MD REASON FOR CONSULTATION: Gastric outlet obstruction. HISTORY OF PRESENT ILLNESS: The patient is a 79-year-old chronically ill, cachectic-appearing female. She is known to myself from recent hospitalization from perforated pyloric channel ulcer. This was repaired laparoscopically on September 23. She was discharged from the hospital on September 29, apparently tolerating her diet. She was given a prescription at that time for Protonix and MiraLAX. The patient tells us that she has not taken any medications since her discharge. She gives circular reasoning for why she did not get the medication. She never contacted my office in regard to any concerns. She presented to the emergency room today complaining that she was "so very sick last night." She tells me she feels much better today. She denies vomiting. She tells me her bowels have been moving. She tells me that she was spitting up a bunch last night, but believes this was all sputum. Examination in the emergency room today reveals a CAT scan that shows significant gastric distention with an abnormal appearance of edema in the proximal duodenum in the suspected area of the ulcer repair. Labs show a white blood cell count of 10. This is significantly higher than during her last hospitalization when her maximum white blood cell count was 5.4 at the time of her perforation. Her hemoglobin is 10.2, up from 7.8 on September 28. Platelet count is 417. She does have a left shift. Chemistry panel, however, reveals essentially normal electrolytes with normal BUN and creatinine. Her albumin is depressed at 2.8. PAST MEDICAL HISTORY: Significant for asthma, COPD, and hypertension. PAST SURGICAL HISTORY: Appendectomy and laparoscopic repair of perforated pyloric channel ulcer. MEDICATIONS: She tells us that she has been taking no medications even though she was prescribed Protonix. ALLERGIES: NO KNOWN DRUG ALLERGIES. PERSONAL AND SOCIAL HISTORY: She smokes. Does not drink. She is from [place]. PHYSICAL EXAMINATION: VITAL SIGNS: Her vital signs in the emergency room reveal that she was afebrile, pulse is 73, and blood pressure 140/81. GENERAL: She is a very thin elderly white female, resting in bed, and in no acute distress. She tells me she feels well. HEAD, EYES, EARS, NOSE, AND THROAT: Unremarkable. NECK: Supple. LUNGS: Clear to auscultation anteriorly. CARDIAC: Regular rate and rhythm. ABDOMEN: Nontender. It is nondistended. There are very few, if any bowel sounds. EXTREMITIES: Unremarkable. LABORATORY DATA: As referenced above. ASSESSMENT: This is a patient who has been noncompliant following her discharge. She had a perforated peptic ulcer. Her Helicobacter pylori serology was negative. She was seen during the last hospitalization by Dr. Horn in regard to her cirrhosis (which was not biopsied at the time of her surgery). She appears to have findings consistent with a gastric outlet obstruction, although she actually denies vomiting significantly. Given her overall appearance and state of her health, in light of her significant gastric distention, I would recommend observation in the hospital to ensure that she can take an appropriate diet. Given the abnormal appearance of her pyloric channel, she will likely require endoscopy and Gastroenterology has been appropriately consulted. The patient will be started on IV fluids as well as intravenous proton pump inhibitors. I will continue to follow, although she does not appear to require any surgery at this time. Job ID: [id number]
[2019-10-07] MEDS ORDERED: Morphine 2 MG/ML SYRINGE SLOW IVP PRN (14:45)
--- NOTE | 2019-10-07 14:47 | HP ---
REASON FOR ADMISSION: Possible gastric outlet obstruction with gastric dilatation. HISTORY OF PRESENTING ILLNESS: The patient gives history of feeling sick from yesterday. She could not sleep. She has felt nauseous, but not thrown up anything. No complaints of abdominal pain as such. Her last bowel movement was last night, which looked normal. On arrival in ER, the patient has had a CT of the abdomen and pelvis done, which showed findings of fluid distention of stomach with apparent mural edema involving antrum and proximal duodenum, outlet obstruction could not be excluded. There is also distal thoracic esophagus mural thickening seen, which possibly reflects esophagitis. PAST MEDICAL AND SURGICAL HISTORY: The patient has had perforated pyloric channel ulcer, which was repaired with laparoscopic omental patch. She had extensive washout of diffuse peritonitis. All this was done on 09/24/2019. Her liver was also fibrotic and cirrhotic in appearance, which was visualized during laparoscopic procedure; COPD with ongoing smoking; hypertension; prior history of appendectomy. CURRENT MEDICATIONS: The patient states she is not taking any medications now. She was prescribed Protonix 40 mg twice daily along with Toprol-XL and MiraLAX when she got discharged on the September 29. ALLERGIES: NO KNOWN DRUG ALLERGIES. PERSONAL HISTORY: Smokes 4 to 5 cigarettes a day. She denies using drugs. Drinks on social occasions. She ambulates by herself. She is from [place] and is visiting her family here. FAMILY HISTORY: Mother in her 70s, she had history of ovarian cancer. Father in his 80s from [facility]. The patient has a daughter. Her name is Sophia Reynoso. CODE STATUS: Full. Power of divorce attorney is her daughter. REVIEW OF SYSTEMS: CONSTITUTIONAL: Negative for weight loss or gain, ability to conduct usual activities. SKIN: Negative for rash, itching. EYES: Negative for double vision, pain. ENT/MOUTH: Negative for nose bleeding, neck stiffness, pain, tenderness. CARDIOVASCULAR: Negative for palpitations, dyspnea on exertion, orthopnea. RESPIRATORY: Negative for shortness of breath, wheezing, cough, hemoptysis, fever or night sweats. GASTROINTESTINAL: Negative for poor appetite, abdominal pain, heartburn, nausea, vomiting, constipation, or diarrhea. GENITOURINARY: Negative for urgency, frequency, dysuria, nocturia. MUSCULOSKELETAL: Negative for pain, swelling. NEUROLOGIC/PSYCHIATRIC: Negative for anxiety, depression. ALLERGY/IMMUNOLOGIC: Negative for skin rash, bleeding tendency. PHYSICAL EXAMINATION: GENERAL: The patient is a 79-year-old female, who is currently not in any acute distress. VITAL SIGNS: Blood pressure 140/80, pulse 74 per minute, respiratory rate 18 per minute, temperature 98.8 degrees Fahrenheit, saturating 97% on room air. NECK: Supple. No elevated JVD. HEENT: Eyes; extraocular muscles intact. Pupils reacting to light. Oral cavity, mucous membranes are dry. No exudates or congestion. CARDIOVASCULAR SYSTEM: S1 and S2 heard. Regular rhythm. RESPIRATORY SYSTEM: Air entry 1+ bilateral. Scattered rhonchi plus no rales or wheezes. ABDOMEN: Soft. No tenderness, rigidity, or guarding is noted. Has some fullness in the epigastric area. Her recent laparoscopic trocar scars are healing well. EXTREMITIES: No peripheral edema or calf tenderness. VASCULAR SYSTEM: Peripheral pulses 1+ bilateral. No ischemic ulcerations or gangrene. CENTRAL NERVOUS SYSTEM: No gross focal deficits noted. The patient is alert, awake, oriented well. PSYCHIATRIC: The patient's mood is euthymic. No hallucinations or delusions. LABORATORY DATA: CT of the abdomen and pelvis with contrast done showed fluid distention of stomach with mural edema involving antrum and proximal duodenum. Outlet obstruction could not be ruled out. There is distal thoracic esophagus mural thickening seen with possible esophagitis. No pneumoperitoneum is seen. There is 1.9 cm left hepatic lobe mass was seen. LFTs are within normal limits. Albumin is 2.8. Lipase is 5. BUN 6, creatinine 0.6. Lactic acid 1.2. Electrolytes stable. Serum bicarb 29. White count of 10, H and H of 10 and 30, platelet count 417, MCV is 90 with 87% neutrophils. CLINICAL IMPRESSION AND PLAN: The patient will be admitted to Med/Surg floor for gastric dilatation to rule out gastric outlet obstruction. She has had recent pyloric channel ulcer with perforation and laparoscopic omental patch was placed in early September. She has not been taking any medications for her peptic ulcer disease after discharge, although she was prescribed the same. We will keep her n.p.o. for now. She will be on Protonix 40 mg IV q.12 hourly. We will gently hydrate her along with albuterol nebulizer 4 times daily. The patient states she has always been skinny and she in addition to which has lost some weight after her recent surgery. I have discussed her findings with Dr. Ruiz and Dr. Holloway for Gastroenterology. We will continue to closely monitor her on Med/Surg floor. Job ID: [id number]
--- NOTE | 2019-10-07 15:52 | CON ---
DATE OF CONSULTATION: 10/07/2019 REASON FOR CONSULTATION: Probable gastric outlet obstruction. CONSULTING PROVIDER: Rodriguez Duran MD HISTORY OF PRESENT ILLNESS: The patient is a 79-year-old female with past medical history of COPD, hypertension, chronic hepatitis C infection and cirrhosis with recent hospitalization for perforated pyloric channel ulcer, presenting with complaints of nausea, vomiting, and increased abdominal pain. The patient was discharged from [facility] on September 30, 2019, after being intervened upon for a perforated pyloric channel ulcer. During that hospitalization, she underwent laparoscopic repair of this ulceration that had perforated, along with omental patch placement. She did well in the postoperative period and was ultimately discharged. She states that she was at home and did well without any immediate perioperative complications other than mild abdominal pain at the laparoscopic trocar sites until last night. Last night, she had acute onset of increased midepigastric abdominal pain, characterized as a burning/cramping type sensation, was nonradiating, was intermittent, where it would last for 3 to 5 minutes in duration, but happen frequently throughout the course of the night, and reached a severity of 3/10. The pain was worse with eating, increased physical activity, and not having a bowel movement, better only with fasting states. This increased abdominal pain was associated with increased nausea and vomiting as well, where she had approximately 2 to 3 discrete episodes of emesis of small volume clear fluid, but she denies any episodes of hematemesis. Given this increased worsening midepigastric abdominal pain as well as the nausea and vomiting, she stated that it felt "like what I had before and like everything just collapsed." With the increase of this pain, it prompted her to seek healthcare assistance at [facility], where she had a CT scan performed showing significant dilation of the stomach with edema both in the distal esophagus and at the gastric duodenal junction and was ultimately admitted to the hospital for further evaluation for possible gastric outlet obstruction. She further endorses generalized weakness, a fever of 101 degrees at home, subjective chills, and "sticky urine." Currently, she denies any hematemesis, melena, hematochezia, diarrhea, constipation, dysphagia, or odynophagia. Of note, the patient was discharged on numerous medications, but apparently did not fill any of them between her discharge date and now. REVIEW OF SYSTEMS: A 10-category review of systems was obtained with all responses negative except for the pertinent positives as listed in HPI. PAST MEDICAL HISTORY: As per HPI. PAST SURGICAL HISTORY: Laparoscopic repair of a pyloric channel ulcer with omental patch placement with extensive washout secondary to diffuse peritonitis and appendectomy. FAMILY HISTORY: Denies any GI malignancies. SOCIAL HISTORY: Smokes approximately 1/4 pack per day x20+ years. Denies any illicit drug use, but does drink alcohol on social occasions (none within the last week). OUTPATIENT MEDICATIONS: None. ALLERGIES: NO KNOWN DRUG ALLERGIES. PHYSICAL EXAMINATION: VITAL SIGNS: Temperature 98.8, pulse 96, blood pressure 106/65, respiratory rate 16, saturating 97% on room air. GENERAL: The patient was lying in bed, in no acute distress. Alert and oriented x4. HEENT: Normocephalic, atraumatic. NECK: Supple. No JVD or scleral icterus noted. CARDIOVASCULAR: Tachycardic rate, but regular rhythm with no discernible murmurs, gallops, or rubs. RESPIRATORY: Clear to auscultation bilaterally with no discernible wheezes or rales. ABDOMEN: Hypoactive bowel sounds, mildly tense to palpation with increased guarding. No abdominal distention noted. Increased tenderness to palpation in the right upper quadrant, midepigastric, and around the previous laparoscopic trocar sites in the lower abdomen. EXTREMITIES: No cyanosis, clubbing, or edema. LABORATORY DATA: CBC with a white blood cell count of 10.2, hemoglobin 10.2, hematocrit 30.9, platelets 417. Chemistry with a sodium of 136, potassium 3.6, chloride 99, CO2 of 29, BUN 6, creatinine 0.66, glucose 110, AST 19, ALT 9, alkaline phosphatase 71, total bilirubin 0.7, albumin 2.8. Lipase 5. AFP less than 2. IMAGING DATA: CT of the abdomen and pelvis was obtained on October 07, 2019, which showed mural thickening of the distal esophagus in addition to the stomach being conspicuously distended by fluid. There was a focus of mural gas involving the duodenum and mural edema of the gastric antrum and duodenal bulb. Minimal free intraperitoneal fluid was seen with no intraperitoneal air. A 1.9 cm hypodense mass was seen within the left hepatic lobe, unchanged from previous evaluation during the last hospitalization. However, upon review of her previous CT scan on September 24, 2019, it did not mention the presence of any hepatic mass. Further characterization of this hepatic mass is indicated. ASSESSMENT AND PLAN: The patient is a 79-year-old female with past medical history of chronic obstructive pulmonary disease, hypertension, chronic hepatitis C infection, perforated pyloric channel ulcer, status post laparoscopic repair and omental patch placement, and cirrhosis of the liver, presenting with increased nausea, vomiting, and epigastric abdominal pain with imaging concerning for gastric outlet obstruction. 1. Gastric outlet obstruction. a. The patient was recently admitted to the hospital in mid September 2019 with complaints of epigastric abdominal pain, nausea, and vomiting. Imaging findings at that time showed a significant amount of free air within the abdomen that was secondary to a perforated pyloric channel ulcer. She subsequently underwent exploratory laparoscopy with laparoscopic repair of the perforated pyloric channel ulcer with omental patch placement, and in the postoperative period, did well. She was ultimately discharged to home and was doing fine until last night when she again had increasing epigastric abdominal pain, nausea, and vomiting. On evaluation of the patient today, she does have a borderline elevated white blood cell count in addition to imaging findings concerning for a gastric outlet obstruction. At this time, the etiology of her gastric outlet obstruction is unknown, but could be due to ulcer formation due to the repair. The surgical repair that was performed recently and swelling and edema resulting in outlet obstruction. I. Peptic ulcer disease from a different site, hepatic mass causing extrinsic compression of the gastric-duodenal junction (much less likely), functional gastroparesis, stricture formation at the surgical repair site and/or gastrointestinal neoplasm (much less likely). RECOMMENDATIONS: 1. We would keep the patient n.p.o. for now in light of gastric outlet obstruction. 2. We would place an NG tube for decompression of the upper GI tract in addition to suctioning out the fluid already in her stomach to allow for adequate visualization when performing EGD. 3. We would plan for EGD tomorrow morning for intraluminal evaluation. 4. We will continue the patient on PPI 40 mg b.i.d. in light of recent perforated pyloric channel ulcer. 5. Pain control per primary team. We will continue to follow. Please call with any questions. Job ID: [id number]
[2019-10-07] MEDS: D5 1/2 NS w/20 mEq KCL 1,000 ML IV SCH (15:53)
[2019-10-07 16:26] VITALS: BMI 16.7
--- NOTE | 2019-10-07 17:53 | RAD ---
SINGLE VIEW OF THE ABDOMEN: 10/07/19 COMPARISON: CT abdomen/pelvis 10/07/19. HISTORY: Ileus versus small bowel obstruction. FINDINGS: Single view of the abdomen shows a nonspecific, nonobstructed bowel gas pattern. The stomach is enla rged. Contrast is seen in both kidneys and the urinary bladder from recent contrast examination. No significantly distended loops of small bowel are seen. Air is also seen in the colon. IMPRESSION: Nonobstructed bowel gas pattern. POS: [facility]
[2019-10-07] MEDS ORDERED: Piperacillin/Tazobactam 3.375 GM in Sodium Chloride 0.9% 100 ML IVPB SCH (18:00)
[2019-10-07] MEDS ORDERED: Ondansetron PF 4 MG/2 ML Vial IVP PRN (18:21)
--- NOTE | 2019-10-07 19:26 | RAD ---
SINGLE VIEW OF THE ABDOMEN: 10/07/19 COMPARISON: 10/07/19 at 5:09 p.m. HISTORY: NG tube placement. FINDINGS: Single view of the abdomen shows an NG tube within the stomach. The stomach has decreased in size com pared to the prior exam. There was a nonobstructed bowel gas pattern. IMPRESSION: NG tube located in the stomach. POS: [facility]
[2019-10-07] MEDS: Pantoprazole 40 MG VIAL IVP SCH (20:29)
[2019-10-08] MEDS: D5 1/2 NS w/20 mEq KCL 1,000 ML IV SCH ×3 (00:30→20:31)
[2019-10-08 05:10] LABS: INR-International Normal Ratio 1.1; Prothrombin Time 14.3 SEC (12.0-14.7)
[2019-10-08 05:23] LABS: #Lymphocytes 0.7 thou/uL (1.20-3.40); #Monocytes 0.7 thou/uL (0.11-0.59); #Neutrophils 6.4 thou/uL (1.40-6.50); %Basophils 0.1 % (0.0-1.0); %Eosinophils 0.4 % (0.0-10.0); %Lymphocytes 8.4 % (21.0-51.0); %Monocytes 8.3 % (0.0-10.0); %Neutrophils 82.8 % (42.0-75.0); Hemoglobin 7.6 g/dL (12.0-16.0); Mean Corpuscular HGB CONC 32.8 g/dL (32.0-36.0); Mean Corpuscular Hemoglobin 29.5 pg (27.0-31.0); Mean Platelet Volume 6.8 fL (7.4-10.4); Platelet Count 255 thou/uL (130-400); RBC Distribution Width 14.5 % (11.5-14.5); Red Blood Cell (RBC) Count 2.58 mill/uL (4.20-5.40); White Blood Cell (WBC) Count 7.8 thou/uL (4.8-10.8)
[2019-10-08 05:31] LABS: ALT (SGPT) 7 U/L (8-55); AST (SGOT) 12 U/L (5-34); Albumin 2.1 g/dL (3.4-4.8); Alkaline Phosphatase 51 U/L (40-110); Anion Gap 8 mmol/L (10-20); BUN (Urea Nitrogen) 5 mg/dL (9.8-20.1); Bilirubin, Total 0.4 mg/dL (0.2-1.2); Calc. Creatinine Clearance 57 mL/min (70-130); Calcium 7.7 mg/dL (7.8-10.44); Carbon Dioxide 24 mmol/L (23-31); Chloride 106 mmol/L (98-107); Estimated GFR-MDRD 90; Globulin 3.4 g/dL (2.4-3.5); Glucose 116 mg/dL (83-110); Potassium 3.8 mmol/L (3.5-5.1); Protein, Total 5.5 g/dL (6.0-8.3); Sodium 134 mmol/L (136-145)
[2019-10-08] MEDS: Albuterol Sulfate 2.5 mg/3 ml Neb NEB SCH ×4 (07:09→18:23)
--- NOTE | 2019-10-08 10:33 | OP ---
DATE OF PROCEDURE: 10/08/2019 PREPROCEDURE DIAGNOSES: 1. History of duodenal ulcer with perforation status post surgical repair on 09/24/2019. 2. Readmission with gastric outlet obstruction and vomiting. POSTPROCEDURE DIAGNOSES: 1. Severe erosive esophagitis consistent with recurrent vomiting. 2. Normal stomach except for compression of the likely from edematous change. No overt malignancy seen. Biopsies taken for H pylori. 3. Distorted duodenum with edema. Ulcer is noted in the bulb. Biopsies were taken from the margin. 4. Beyond this, the duodenal mucosa and the 2nd and 3rd portions is somewhat nodular, biopsied and sent to Pathology. 5. Suspect that gastric outlet obstruction is related to edema, both postsurgical and mucosal. Apparently, the patient was not taking PPIs after being discharged. RECOMMENDATIONS: 1. IV Protonix q.12. 2. Continue NG tube suction. 3. Check CBC and basic metabolic profile daily. 4. Await pathology. ANESTHESIA: TIVA. PROCEDURE IN DETAIL: After the patient was informed of the risks, benefits, and possible complications of endoscopy including perforation, reaction to medication, and aspiration, informed consent was obtained. The patient was brought to the endoscopy suite, where she was sedated in a gradual fashion. Once she was comfortable, a bite-block was placed inside the orifice. The endoscope was advanced through the esophagus, stomach and eventually into the duodenum, 2nd and 3rd portions. The esophagus was notable for severe reflux esophagitis involving the distal two-thirds of the esophagus. This was not biopsied. There were no changes consistent or suggestive of [place]. The stomach was entered and explored, normal in retroflexed views. In the forward view, there was mild nodular gastritis without ulcers, abrasions, or erosions. The pyloric channel could not really be seen well as it was edematous in this area. The scope could be manipulated through this area and we basically came to where we saw a white based ulcer at the superior aspect of the image. This seemed to be in the area of the duodenal bulb. It appeared benign. Biopsies were taken from the borders. We could not completely insufflate in this area and with it turned to the right and down, we were able to enter into the 2nd and 3rd portion of duodenum. The mucosa was slightly nodular. Biopsies were taken, but there does not appear to be any malignancy or tumor here. The scope was then removed. After this, all surveyed one more time and retroflexed view showed no other lesions at the incisura or other ulcers. The patient tolerated the procedure well and there were no complications. Job ID: [id number]
[2019-10-08] MEDS: Enoxaparin Sodium 40 MG/0.4 ML SYRINGE SC SCH (10:41)
[2019-10-08] MEDS: Pantoprazole 40 MG VIAL IVP SCH ×2 (10:42→20:31)
[2019-10-08] MEDS ORDERED: PROPOFOL 200 MG/20 ML VIAL ONE (11:02)
--- NOTE | 2019-10-08 11:20 | PDOC.HOSPP ---
- Subjective Encounter Date: 10/08/19 Encounter Time: 09:30 Subjective: had egd this am no nausea or abd pain has ng tube - Objective Vital Signs & Weight: Vital Signs (12 hours) Temp Pulse Resp BP Pulse Ox 10/08/19 10:24 69 16 98 10/08/19 09:30 97.9 F 77 20 125/61 95 10/08/19 07:17 97.9 F 110 H 14 152/94 H 95 10/08/19 02:41 98.5 F 72 17 135/62 97 Weight Weight 110 lb I&O: 10/07/19 10/08/19 10/09/19 06:59 06:59 06:59 Intake Total 1200 Output Total 350 Balance 850 Result Diagrams: 10/08/19 04:41 10/08/19 04:41 Hospitalist ROS - Medication Medications: Active Medications Generic Name Dose Route Start Last Admin Trade Name Freq PRN Reason Stop Dose Admin Albuterol Sulfate 2.5 mg 10/07/19 15:00 10/08/19 10:24 Ventolin NEB 2.5 mg QID-RT MARYAM Administration Enoxaparin Sodium 40 mg 10/08/19 09:00 10/08/19 10:41 Lovenox SC 40 mg 0900 MARYAM Administration Potassium Chloride/Dextrose/Sod Cl 1,000 mls @ 100 mls/hr 10/07/19 14:00 08/27 10:42 D5 1/2 Ns W/20 Meq Kcl IV 1,000 mls .Q10H MARYAM Administration Pantoprazole Sodium 40 mg 10/07/19 21:00 10/08/19 10:42 Protonix IVP 40 mg Q12HR MARYAM Administration - Exam General Appearance: awake alert Eye: PERRL, anicteric sclera ENT: no oropharyngeal lesions, dry oral mucosa Neck: supple, no JVD Heart: RRR, no murmur Respiratory: no wheezes, no rales Gastrointestinal: soft, non-tender, non-distended, normal bowel sounds, no guarding, no rigidity Extremities: no cyanosis, no edema Neurological: cranial nerve grossly intact, no focal deficits Psychiatric: A&O x 3 Hosp A/P (1) Gastric outlet obstruction Code(s): K31.1 - ADULT HYPERTROPHIC PYLORIC STENOSIS Status: Acute (2) PUD (peptic ulcer disease) Code(s): K27.9 - PEPTIC ULC, SITE UNSP, UNSP AC OR CHR, W/O HEMOR OR PERF Status: Acute (3) Anemia Code(s): D64.9 - ANEMIA, UNSPECIFIED Status: Chronic Qualifiers: Anemia type: iron deficiency (4) COPD (chronic obstructive pulmonary disease) Status: Chronic Qualifiers: COPD type: chronic bronchitis (5) Tobacco abuse Code(s): Z72.0 - TOBACCO USE Status: Chronic (6) Moderate protein-calorie malnutrition Code(s): E44.0 - MODERATE PROTEIN-CALORIE MALNUTRITION Status: Chronic - Plan egd showed edema of duodenum and pylorus to some extent with chr ulcer in duodenum has mech partial obstruction due to edema noncompliance with protonix on recent discharge and ongoing smoking continue iv fluids, protonix q12h, NG tube per GI/surg adv hemostable to ambulate in hallway as tolerated IV iron x 3 doses while patient is here
[2019-10-08] MEDS ORDERED: Iron, Sodium Ferric Gluconate 250 MG in Sodium Chloride 0.9% 100 ML IVPB SCH (11:30)
--- NOTE | 2019-10-08 14:10 | PRG ---
DATE OF SERVICE: 10/08/2019 SUBJECTIVE: Ms. Soler is hospital day #2 following readmission for nausea and vomiting and gastric distention. Nasogastric tube was placed yesterday by Gastroenterology. She underwent upper GI endoscopy today, revealing edematous tissue in the distal stomach and duodenum. There was no evidence of persistent perforation. Ulcer was noted and biopsied. After her procedure, we decided to leave a nasogastric tube in to continue to decompress her distended stomach and planned on placing a central line for TPN while she was receiving PPIs to allow the edematous inflammatory process to resolve, so she can resume p.o. intake. Unfortunately, she apparently became confused. She initially removed her nasogastric tube and then removed her IV and complained to the nurse that she was bleeding (from her IV site). When I presented to see her, she is again pleasant and tells me that she is hungry. I explained why it is not appropriate to allow her to advance her diet at this time and still recommend central line placement with which she agrees to proceed. Her abdomen is entirely benign. ASSESSMENT: Gastric outlet obstruction secondary to edema from peptic ulcer disease. PLAN: Continue bowel rest. Since she has pulled her nasogastric tube out, I will leave it out at this time and continue with intravenous nutrition and proton pump inhibitors. PREOPERATIVE DIAGNOSES: Malnutrition (albumin of 2.1) and recent dehydration with gastric outlet obstruction. POSTOPERATIVE DIAGNOSES: Malnutrition (albumin of 2.1) and recent dehydration with gastric outlet obstruction. PROCEDURE PERFORMED: Placement of right femoral vein triple-lumen central line. ANESTHESIA: 1% lidocaine. INDICATION FOR PROCEDURE: As above. DESCRIPTION OF PROCEDURE: Informed consent was obtained. The patient was supine on her bed on the surgical floor. Right groin was prepped initially with alcohol and subsequently with ChloraPrep. Sterile drapes were placed. Local anesthetic was infiltrated using 1% lidocaine. Large gauge needle was advanced uneventfully into the right femoral vein and guidewire was passed through the needle. The skin was incised, tract was dilated, and a 7-Mauritian triple-lumen catheter was passed over the wire without difficulty. Each of the 3 lumens aspirated blood freely and was flushed with heparinized saline. The catheter was secured at skin exit site with 3-0 silk suture. Sterile occlusive dressing was applied. The patient tolerated the procedure well. TPN will be initiated shortly. Job ID: [id number]
[2019-10-08 14:57] LABS: #Lymphocytes 0.7 thou/uL (1.20-3.40); #Monocytes 0.5 thou/uL (0.11-0.59); #Neutrophils 5.8 thou/uL (1.40-6.50); %Basophils 0.1 % (0.0-1.0); %Eosinophils 0.1 % (0.0-10.0); %Lymphocytes 10.5 % (21.0-51.0); %Monocytes 6.6 % (0.0-10.0); %Neutrophils 82.7 % (42.0-75.0); Hemoglobin 7.4 g/dL (12.0-16.0); Mean Corpuscular HGB CONC 33.3 g/dL (32.0-36.0); Mean Platelet Volume 6.5 fL (7.4-10.4); Platelet Count 222 thou/uL (130-400); RBC Distribution Width 14.3 % (11.5-14.5); Red Blood Cell (RBC) Count 2.48 mill/uL (4.20-5.40); White Blood Cell (WBC) Count 7.1 thou/uL (4.8-10.8)
[2019-10-08 15:18] LABS: Anion Gap 9 mmol/L (10-20); BUN (Urea Nitrogen) 4 mg/dL (9.8-20.1); Calc. Creatinine Clearance 59 mL/min (70-130); Calcium 7.8 mg/dL (7.8-10.44); Carbon Dioxide 25 mmol/L (23-31); Chloride 104 mmol/L (98-107); Estimated GFR-MDRD Greater than 90; Glucose 98 mg/dL (83-110); Magnesium 1.6 mg/dL (1.6-2.6); Phosphorus 2.5 mg/dL (2.3-4.7); Potassium 3.5 mmol/L (3.5-5.1); Sodium 134 mmol/L (136-145)
[2019-10-08] MEDS: FAT EMULSION IV SCH (23:08)
[2019-10-08] MEDS: SODIUM CHLORIDE IV SCH (23:08)
[2019-10-08] MEDS: SODIUM ACETATE IV SCH (23:08)
[2019-10-08] MEDS: [UNRECOGNIZED DRUG - OTHER] IV SCH (23:08)
[2019-10-09 06:23] LABS: #Eosinphils 0.1 thou/uL (0.0-0.7); #Lymphocytes 0.6 thou/uL (1.20-3.40); #Monocytes 0.4 thou/uL (0.11-0.59); #Neutrophils 3.2 thou/uL (1.40-6.50); %Basophils 0.2 % (0.0-1.0); %Eosinophils 2.3 % (0.0-10.0); %Lymphocytes 14.1 % (21.0-51.0); %Monocytes 9.1 % (0.0-10.0); %Neutrophils 74.3 % (42.0-75.0); Hemoglobin 7.1 g/dL (12.0-16.0); Mean Corpuscular Hemoglobin 29.8 pg (27.0-31.0); Mean Corpuscular Volume 90.3 fL (78.0-98.0); Mean Platelet Volume 6.3 fL (7.4-10.4); Platelet Count 190 thou/uL (130-400); RBC Distribution Width 14.2 % (11.5-14.5); Red Blood Cell (RBC) Count 2.39 mill/uL (4.20-5.40); White Blood Cell (WBC) Count 4.3 thou/uL (4.8-10.8)
[2019-10-09 06:41] LABS: Anion Gap 8 mmol/L (10-20); BUN (Urea Nitrogen) 4 mg/dL (9.8-20.1); Calc. Creatinine Clearance 60 mL/min (70-130); Calcium 7.9 mg/dL (7.8-10.44); Carbon Dioxide 27 mmol/L (23-31); Chloride 106 mmol/L (98-107); Estimated GFR-MDRD Greater than 90; Glucose 99 mg/dL (83-110); Potassium 3.5 mmol/L (3.5-5.1); Sodium 137 mmol/L (136-145)
[2019-10-09] MEDS: Albuterol Sulfate 2.5 mg/3 ml Neb NEB SCH ×4 (06:50→18:38)
[2019-10-09] MEDS: D5 1/2 NS w/20 mEq KCL 1,000 ML IV SCH ×2 (07:25→15:40)
[2019-10-09] MEDS: Enoxaparin Sodium 40 MG/0.4 ML SYRINGE SC SCH (09:16)
[2019-10-09] MEDS: Iron, Sodium Ferric Gluconate 250 MG in Sodium Chloride 0.9% 100 ML IVPB SCH (09:16)
[2019-10-09] MEDS: Pantoprazole 40 MG VIAL IVP SCH ×2 (09:17→20:34)
--- NOTE | 2019-10-09 12:09 | PDOC.HOSPP ---
- Subjective Encounter Date: 10/09/19 Encounter Time: 09:45 Subjective: no sob or abd pain says she feels weak and has not ambulated yet no nausea - Objective Vital Signs & Weight: Vital Signs (12 hours) Temp Pulse Resp BP Pulse Ox 10/09/19 11:08 99.0 F 84 14 122/58 L 96 10/09/19 10:41 75 16 97 10/09/19 07:24 98.1 F 75 16 138/66 96 10/09/19 06:50 65 16 95 10/09/19 03:15 98.4 F 72 16 122/46 L 96 Weight Admit Weight 110 lb Weight 110 lb I&O: 10/08/19 10/09/19 10/10/19 06:59 06:59 06:59 Intake Total 1200 2560 Output Total 350 300 Balance 850 2260 Result Diagrams: 10/09/19 06:05 10/09/19 06:05 Additional Labs: Accuchecks 10/09/19 10/09/19 10/08/19 11:59 05:42 23:55 POC Glucose 158 H 154 H 141 H Hospitalist ROS - Medication Medications: Active Medications Generic Name Dose Route Start Last Admin Trade Name Freq PRN Reason Stop Dose Admin Albuterol Sulfate 2.5 mg 10/07/19 15:00 10/09/19 10:41 Ventolin NEB 2.5 mg QID-RT MARYAM Administration Enoxaparin Sodium 40 mg 10/08/19 09:00 10/09/19 09:16 Lovenox SC 40 mg 0900 MARYAM Administration Potassium Chloride/Dextrose/Sod Cl 1,000 mls @ 100 mls/hr 10/07/19 14:00 09/24 07:25 D5 1/2 Ns W/20 Meq Kcl IV Not Given .Q10H MARYAM Ferric Sodium Gluconate 120 mls @ 60 mls/hr 10/09/19 09:00 10/09/19 09:16 Complex 250 mg/ Sodium IVPB 10/10/19 09:01 120 mls Chloride DAILY MARYAM Administration Fat Emulsion Intravenous 250 2,283.7 mls @ 95.154 mls/hr 10/08/19 22:00 10/07 23:08 ml/ Sodium Acetate 30 meq/ IV 2,283.7 mls Sodium Chloride 30 meq/ INF MARYAM Administration Multivitamins 10 ml/ Chromium/ Copper/Manganese/Seleni/Zn 1 ml/ Insulin Human Regular 20 units/ Amino Acids/ Electrolytes Pantoprazole Sodium 40 mg 10/07/19 21:00 10/09/19 09:17 Protonix IVP 40 mg Q12HR MARYAM Administration - Exam General Appearance: awake alert Eye: PERRL, anicteric sclera ENT: no oropharyngeal lesions, moist mucosa Neck: supple, no JVD Heart: RRR, no murmur Respiratory: no wheezes, no rales Gastrointestinal: soft, non-tender, non-distended, normal bowel sounds, no guarding, no rigidity Extremities: no cyanosis, no edema Neurological: cranial nerve grossly intact, no focal deficits Hosp A/P (1) Gastric outlet obstruction Code(s): K31.1 - ADULT HYPERTROPHIC PYLORIC STENOSIS Status: Acute (2) PUD (peptic ulcer disease) Code(s): K27.9 - PEPTIC ULC, SITE UNSP, UNSP AC OR CHR, W/O HEMOR OR PERF Status: Acute (3) Anemia Code(s): D64.9 - ANEMIA, UNSPECIFIED Status: Chronic Qualifiers: Anemia type: iron deficiency (4) COPD (chronic obstructive pulmonary disease) Status: Chronic Qualifiers: COPD type: chronic bronchitis (5) Tobacco abuse Code(s): Z72.0 - TOBACCO USE Status: Chronic (6) Moderate protein-calorie malnutrition Code(s): E44.0 - MODERATE PROTEIN-CALORIE MALNUTRITION Status: Chronic - Plan has been started on tpn from yesterday, has right femoral central line egd showed edema of duodenum and pylorus to some extent with chr ulcer in duodenum has mech partial obstruction due to edema noncompliance with protonix on recent discharge and ongoing smoking continue iv fluids, protonix q12h, NG tube per GI/surg adv hemostable PT eval IV iron x 3 doses while patient is here
--- NOTE | 2019-10-09 14:24 | PRG ---
DATE OF SERVICE: 10/09/2019 SUBJECTIVE: Ms. Soler is a little bit nauseated. She is on a liquid diet, but has not thrown up. She had a bowel movement last night. She did take out her IV and her NG tube last night. She did not like them. TPN was started through a central line, she was agreeable to that. OBJECTIVE: VITAL SIGNS: Temperature 98.2, pulse 85, blood pressure 146/95. LUNGS: Clear. HEART: Regular rate and rhythm. ABDOMEN: Nontender. She is cachectic. LABORATORY DATA: White count 4.3, hemoglobin 7.1, platelet count 190. Sodium 137, potassium 3.5, BUN and creatinine 4 and 0.6. Prealbumin was 6. ASSESSMENT: 1. Functional gastric outlet obstruction secondary to edema from recent surgery. Biopsies and EGD yesterday showed no evidence of malignancy. From small bowel biopsies, duodenal bulb biopsies or the stomach, there was no evidence of Helicobacter pylori identified at that time either. 2. Malnutrition, partially due to her lifestyle. 3. Chronic obstructive pulmonary disease from smoking. 4. 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 5. Questionable liver lesion. This will need follow up in 3 months. 6. Hepatitis C. This could be treated in 3 months. RECOMMENDATIONS: 1. Agree with TPN. 2. Continue IV Protonix q.12. 3. Lovenox, deep venous thrombosis prophylaxis, I agree. 4. Advance diet as tolerated. I would stay with liquids for several days; however, as I think that if she is given any kind of roughage or solids, she will likely get an acute gastric distention again. Even when she goes home, maybe it could just be a full liquid diet. I expect her to be here over the weekend, and she was started on TPN recently for severe malnutrition, etc. Job ID: [id number]
[2019-10-09] MEDS: Acetaminophen 325 MG TAB PO PRN (15:40)
--- NOTE | 2019-10-09 17:12 | PRG ---
DATE OF SERVICE: 10/09/2019 SUBJECTIVE: Ms. Soler is hospital day #3 following admission for nausea and vomiting with gastric outlet obstruction. She is postoperative day #1 from EGD performed by Dr. Horn. Findings were consistent with edema of the distal stomach and pylorus. Yesterday, she removed her nasogastric tube and I left this out to see if she would be stable with no nausea or vomiting. She has tolerated ice chips overnight and denies nausea or vomiting. She has limited activity or ambulation. She denies current symptoms or problems. A central line was placed by myself yesterday and TPN was initiated. PHYSICAL EXAMINATION: VITAL SIGNS: Temperature is 98.5, pulse 85, blood pressure 116/56. LUNGS: Clear to auscultation. ABDOMEN: Soft with normoactive bowel sounds. There is no focal tenderness. EXTREMITIES: Her right inguinal central line is in place without visible abnormality. LABORATORY DATA: Her CBC shows a white blood cell count at 4.3. This is typical for her based on her last hospitalization. Her hemoglobin has dropped down to 7.1. She was 10.2 when she was admitted, but this is clearly a dehydrated level that dropped down to 7 when she was appropriately hydrated, therefore diluted. Her electrolytes are entirely normal. Her blood sugars on TPN are 140 to 150. Her pre-albumin is extremely low at 6.0 with an albumin level yesterday of 2.1. Magnesium and phosphorus are normal. ASSESSMENT: The patient with malnutrition and pre-admission severe dehydration. This is secondary to gastric outlet obstruction caused by her noncompliance and her failure to take any acid suppression medication after treatment of her perforated pyloric channel ulcer. For now, I recommend continued acid suppression with b.i.d. Protonix. She should remain on full TPN over the weekend. I will start her on clear liquids today and she may continue with these as long as she tolerates them. I have encouraged both the patient and nursing staff to increase her level of activity with frequent ambulation and time out of bed in the chair. I have discussed this with Dr. Horn. As there is no current surgical problem, I will not have her seen by the on-call surgeon over the weekend, and I will re-evaluate her on Saturday. Job ID: [id number]
[2019-10-09] MEDS: SODIUM ACETATE IV SCH (21:59)
[2019-10-09] MEDS: SODIUM CHLORIDE IV SCH (21:59)
[2019-10-09] MEDS: [UNRECOGNIZED DRUG - OTHER] IV SCH (21:59)
[2019-10-09] MEDS: FAT EMULSION IV SCH (21:59)
[2019-10-10] MEDS: D5 1/2 NS w/20 mEq KCL 1,000 ML IV SCH ×3 (04:09→19:32)
[2019-10-10 04:19] LABS: Anion Gap 7 mmol/L (10-20); BUN (Urea Nitrogen) 9 mg/dL (9.8-20.1); Calc. Creatinine Clearance 61 mL/min (70-130); Calcium 8.2 mg/dL (7.8-10.44); Carbon Dioxide 30 mmol/L (23-31); Chloride 105 mmol/L (98-107); Estimated GFR-MDRD Greater than 90; Glucose 90 mg/dL (83-110); Potassium 4.2 mmol/L (3.5-5.1); Sodium 138 mmol/L (136-145)
[2019-10-10] MEDS: Acetaminophen 325 MG TAB PO PRN (05:59)
[2019-10-10] MEDS: Albuterol Sulfate 2.5 mg/3 ml Neb NEB SCH ×4 (06:36→18:21)
[2019-10-10] MEDS ORDERED: Ondansetron PF 4 MG/2 ML Vial IVP PRN (06:38)
[2019-10-10] MEDS: Enoxaparin Sodium 40 MG/0.4 ML SYRINGE SC SCH (08:33)
[2019-10-10] MEDS: Pantoprazole 40 MG VIAL IVP SCH ×2 (08:33→19:26)
[2019-10-10] MEDS: Iron, Sodium Ferric Gluconate 250 MG in Sodium Chloride 0.9% 100 ML IVPB SCH (08:33)
--- NOTE | 2019-10-10 11:46 | PDOC.HOSPP ---
- Subjective Encounter Date: 10/10/19 Encounter Time: 08:15 Subjective: is tolerating liq diet, no nausea or abd pain is able to move to her commode and back on her own no sob - Objective Vital Signs & Weight: Vital Signs (12 hours) Temp Pulse Resp BP Pulse Ox 10/10/19 10:24 78 16 100 10/10/19 08:14 98.3 F 75 16 119/52 L 97 10/10/19 06:36 71 16 98 10/10/19 03:37 99.8 F H 69 16 114/56 L 95 Weight Admit Weight 110 lb Weight 110 lb I&O: 10/09/19 10/10/19 10/11/19 06:59 06:59 06:59 Intake Total 2560 3652 Output Total 300 Balance 2260 3652 Result Diagrams: 10/09/19 06:05 10/10/19 03:50 Additional Labs: Accuchecks 10/10/19 10/09/19 10/09/19 05:45 23:36 15:57 POC Glucose 125 H 138 H 144 H 10/09/19 11:59 POC Glucose 158 H Hospitalist ROS - Medication Medications: Active Medications Generic Name Dose Route Start Last Admin Trade Name Freq PRN Reason Stop Dose Admin Acetaminophen 650 mg 10/07/19 13:28 10/10/19 05:59 Tylenol PO 650 mg Q4H PRN Administration Headache/Fever/Mild Pain (1-3) Albuterol Sulfate 2.5 mg 10/07/19 15:00 10/10/19 10:24 Ventolin NEB 2.5 mg QID-RT MARYAM Administration Enoxaparin Sodium 40 mg 10/08/19 09:00 10/10/19 08:33 Lovenox SC 40 mg 0900 MARYAM Administration Potassium Chloride/Dextrose/Sod Cl 1,000 mls @ 100 mls/hr 10/07/19 14:00 10/25 04:09 D5 1/2 Ns W/20 Meq Kcl IV Not Given .Q10H MARYAM Fat Emulsion Intravenous 250 2,283.7 mls @ 95.154 mls/hr 10/08/19 22:00 10/08 21:59 ml/ Sodium Acetate 30 meq/ IV 2,283.7 mls Sodium Chloride 30 meq/ INF MARYAM Administration Multivitamins 10 ml/ Chromium/ Copper/Manganese/Seleni/Zn 1 ml/ Insulin Human Regular 20 units/ Amino Acids/ Electrolytes Ondansetron HCl 4 mg 10/10/19 06:38 10/10/19 06:42 Zofran IVP 4 mg Q6H PRN Administration Nausea/Vomiting Pantoprazole Sodium 40 mg 10/07/19 21:00 10/10/19 08:33 Protonix IVP 40 mg Q12HR MARYAM Administration Sodium Chloride 10 ml 10/10/19 09:00 10/10/19 08:33 Flush - Normal Saline IVF 10 ml Q12HR MARYAM Administration - Exam General Appearance: awake alert Eye: PERRL, anicteric sclera ENT: no oropharyngeal lesions, moist mucosa Neck: supple, no JVD Heart: RRR, no murmur Respiratory: no wheezes, no rales, rhonchi Gastrointestinal: soft, non-tender, non-distended, normal bowel sounds Extremities: no cyanosis, no edema Neurological: cranial nerve grossly intact, no focal deficits Psychiatric: A&O x 3 Hosp A/P (1) Gastric outlet obstruction Code(s): K31.1 - ADULT HYPERTROPHIC PYLORIC STENOSIS Status: Acute (2) PUD (peptic ulcer disease) Code(s): K27.9 - PEPTIC ULC, SITE UNSP, UNSP AC OR CHR, W/O HEMOR OR PERF Status: Acute (3) Anemia Code(s): D64.9 - ANEMIA, UNSPECIFIED Status: Chronic Qualifiers: Anemia type: iron deficiency (4) COPD (chronic obstructive pulmonary disease) Status: Chronic Qualifiers: COPD type: chronic bronchitis (5) Tobacco abuse Code(s): Z72.0 - TOBACCO USE Status: Chronic (6) Moderate protein-calorie malnutrition Code(s): E44.0 - MODERATE PROTEIN-CALORIE MALNUTRITION Status: Chronic - Plan is on tpn along with liq diet, has right femoral central line egd showed edema of duodenum and pylorus to some extent with chr ulcer in duodenum has mech partial obstruction due to edema noncompliance with protonix on recent discharge and ongoing smoking continue iv fluids, protonix q12h hemostable PT eval and ambulate as tolerated in hallway IV iron x 3 doses while patient is here
[2019-10-10] MEDS ORDERED: Mag-Al 1200 mg/1200 mg/30 ML UDCUP PO PRN (18:45)
[2019-10-10] MEDS: [UNRECOGNIZED DRUG - OTHER] IV SCH (22:56)
[2019-10-10] MEDS: FAT EMULSION IV SCH (22:56)
[2019-10-10] MEDS: SODIUM CHLORIDE IV SCH (22:56)
[2019-10-10] MEDS: SODIUM ACETATE IV SCH (22:56)
--- NOTE | 2019-10-11 06:35 | PRG ---
DATE OF SERVICE: 10/10/2019 SUBJECTIVE: Ms. Soler is asking if she can go home. She is tolerating a clear liquid diet. She has only gotten up to walk once today. She refused to walk the other time. She has been started on TPN. OBJECTIVE: VITAL SIGNS: Temperature 98, pulse 84, blood pressure 106/54. GENERAL: She is cachectic and thin. LUNGS: Clear. ABDOMEN: Nontender. LABORATORY DATA: Sodium 138, potassium 4.2, BUN and creatinine 9 and 0.6 today. ASSESSMENT: 1. Gastric outlet obstruction from edema secondary to gastric ulcer, which had to be operated on for perforation. States she was noncompliant, did not take a PPI at home, and then returned with symptoms of gastric outlet obstruction. Esophagogastroduodenoscopy showed this just to be edema from the ulcer and surgery. She has had no signs of malignancy on biopsies or Helicobacter pylori. 2. Chronic obstructive pulmonary disease. 3. Medical noncompliance. RECOMMENDATIONS: 1. I have told the patient she needs to walk daily. 2. As she is tolerating clear liquids, will move to full liquids and Ensure. I have talked with the nurse. 3. We will check labs tomorrow including electrolytes. She is on TPN. Job ID: [id number]
[2019-10-11] MEDS: Albuterol Sulfate 2.5 mg/3 ml Neb NEB SCH ×4 (06:51→18:32)
[2019-10-11 06:52] LABS: Phosphorus 3.4 mg/dL (2.3-4.7)
[2019-10-11 06:55] LABS: ALT (SGPT) 7 U/L (8-55); AST (SGOT) 18 U/L (5-34); Albumin 2.3 g/dL (3.4-4.8); Alkaline Phosphatase 60 U/L (40-110); Anion Gap 6 mmol/L (10-20); BUN (Urea Nitrogen) 11 mg/dL (9.8-20.1); Bilirubin, Total 0.4 mg/dL (0.2-1.2); Calc. Creatinine Clearance 59 mL/min (70-130); Carbon Dioxide 31 mmol/L (23-31); Chloride 104 mmol/L (98-107); Estimated GFR-MDRD Greater than 90; Globulin 3.4 g/dL (2.4-3.5); Glucose 91 mg/dL (83-110); Potassium 4.2 mmol/L (3.5-5.1); Protein, Total 5.7 g/dL (6.0-8.3); Sodium 137 mmol/L (136-145)
[2019-10-11] MEDS: Enoxaparin Sodium 40 MG/0.4 ML SYRINGE SC SCH (08:42)
[2019-10-11] MEDS: Pantoprazole 40 MG VIAL IVP SCH ×2 (08:43→20:28)
[2019-10-11] MEDS: D5 1/2 NS w/20 mEq KCL 1,000 ML IV SCH ×2 (08:43→16:17)
[2019-10-11 10:44] LABS: Iron 39 ug/dL (50-170); Iron Binding Capacity, Total 221 mcg/dL (265-497)
[2019-10-11] MEDS ORDERED: Mag-Al 1200 mg/1200 mg/30 ML UDCUP PO PRN (10:47)
[2019-10-11 12:41] LABS: Ferritin 410.47 ng/mL (10-291)
--- NOTE | 2019-10-11 13:25 | PDOC.HOSPP ---
- Subjective Encounter Date: 10/11/19 Encounter Time: 10:20 Subjective: is ambulating in hallway, tolerating liq diet but does not like if its too sweet to taste no sob - Objective Vital Signs & Weight: Vital Signs (12 hours) Temp Pulse Resp BP Pulse Ox 10/11/19 10:41 66 16 100 10/11/19 10:36 97.7 F 68 16 115/55 L 99 10/11/19 07:42 98.4 F 86 16 114/62 98 10/11/19 06:51 72 16 98 10/11/19 03:48 98.6 F 70 14 112/68 96 Weight Admit Weight 110 lb Weight 110 lb I&O: 10/10/19 10/11/19 10/12/19 06:59 06:59 06:59 Intake Total 3652 4585 Balance 3652 4585 Result Diagrams: 10/09/19 06:05 10/11/19 06:15 Additional Labs: Accuchecks 10/11/19 10/11/19 10/10/19 12:04 05:44 23:43 POC Glucose 111 H 104 123 H 10/10/19 17:49 POC Glucose 109 Hospitalist ROS - Medication Medications: Active Medications Generic Name Dose Route Start Last Admin Trade Name Freq PRN Reason Stop Dose Admin Acetaminophen 650 mg 10/07/19 13:28 10/10/19 05:59 Tylenol PO 650 mg Q4H PRN Administration Headache/Fever/Mild Pain (1-3) Al Hydroxide/Mg Hydroxide 15 ml 10/11/19 10:47 10/11/19 11:24 Maalox PO 15 ml Q6H PRN Administration Heartburn or Indigestion Albuterol Sulfate 2.5 mg 10/07/19 15:00 10/11/19 10:41 Ventolin NEB 2.5 mg QID-RT MARYAM Administration Enoxaparin Sodium 40 mg 10/08/19 09:00 10/11/19 08:42 Lovenox SC 40 mg 0900 MARYAM Administration Potassium Chloride/Dextrose/Sod Cl 1,000 mls @ 100 mls/hr 10/07/19 14:00 11/24 08:43 D5 1/2 Ns W/20 Meq Kcl IV Not Given .Q10H MARYAM Fat Emulsion Intravenous 250 2,283.7 mls @ 95.154 mls/hr 10/08/19 22:00 10/09 22:56 ml/ Sodium Acetate 30 meq/ IV 2,283.7 mls Sodium Chloride 30 meq/ INF MARYAM Administration Multivitamins 10 ml/ Chromium/ Copper/Manganese/Seleni/Zn 1 ml/ Insulin Human Regular 20 units/ Amino Acids/ Electrolytes Ondansetron HCl 4 mg 10/10/19 06:38 10/10/19 06:42 Zofran IVP 4 mg Q6H PRN Administration Nausea/Vomiting Pantoprazole Sodium 40 mg 10/07/19 21:00 10/11/19 08:43 Protonix IVP 40 mg Q12HR MARYAM Administration Sodium Chloride 10 ml 10/10/19 09:00 10/11/19 08:43 Flush - Normal Saline IVF Not Given Q12HR MARYAM - Exam General Appearance: awake alert Eye: PERRL, anicteric sclera ENT: no oropharyngeal lesions, moist mucosa Neck: supple, no JVD Heart: RRR, no murmur Respiratory: no wheezes, no rales Gastrointestinal: soft, non-tender, non-distended, normal bowel sounds Extremities: no cyanosis, no edema Neurological: cranial nerve grossly intact, no focal deficits Psychiatric: A&O x 3 Hosp A/P (1) Gastric outlet obstruction Code(s): K31.1 - ADULT HYPERTROPHIC PYLORIC STENOSIS Status: Acute (2) PUD (peptic ulcer disease) Code(s): K27.9 - PEPTIC ULC, SITE UNSP, UNSP AC OR CHR, W/O HEMOR OR PERF Status: Acute (3) Anemia Code(s): D64.9 - ANEMIA, UNSPECIFIED Status: Chronic Qualifiers: Anemia type: iron deficiency (4) COPD (chronic obstructive pulmonary disease) Status: Chronic Qualifiers: COPD type: chronic bronchitis (5) Tobacco abuse Code(s): Z72.0 - TOBACCO USE Status: Chronic (6) Moderate protein-calorie malnutrition Code(s): E44.0 - MODERATE PROTEIN-CALORIE MALNUTRITION Status: Chronic - Plan is on tpn along with full liq diet, has right femoral central line. egd showed edema of duodenum and pylorus to some extent with chr ulcer in duodenum has mech partial obstruction due to edema noncompliance with protonix on recent discharge and ongoing smoking continue iv fluids, protonix q12h hemostable She is now ambulating in hallway has finished IV iron x 3 doses, oral iron liq from today ensure 1 can tid dc plan per gen surg/GI adv, she has to orally take in adequate calories will be on liq diet for 3-4 weeks so her edema resolves.
[2019-10-11] MEDS ORDERED: IRON IVPB SCH (15:15)
[2019-10-11] MEDS ORDERED: SODIUM FERRIC GLUCONATE IVPB SCH (15:15)
[2019-10-11] MEDS ORDERED: SODIUM CHLORIDE 0.9% IVPB SCH (15:15)
--- NOTE | 2019-10-11 15:29 | PRG ---
DATE OF SERVICE: 10/11/2019 SUBJECTIVE: Ms. Soler was tolerating full liquids. She ate some regular food. She had a bowel movement. OBJECTIVE: VITAL SIGNS: Temperature is 97, pulse 74, blood pressure is 115/55. LUNGS: Clear. HEART: Regular. ABDOMEN: Soft, nontender. There is no rebound. There is no guarding. Bowel sounds are positive. LABORATORY DATA: Glucose is 111 today. Ferritin is 410. Iron is still low at 39. B12 is 441. Folate 7.6. ASSESSMENT: 1. Anemia, likely due to ulcer and iron deficiency. B12 and folate normal. She received some IV iron today, but her iron levels are still low. 2. Functional gastric outlet obstruction secondary to edema, but no evidence of malignancy, improving with intravenous proton pump inhibitors. She was noncompliant and did not take proton pump inhibitors when she was discharged last time. RECOMMENDATIONS: 1. IV iron. 2. Advance diet to low residue. Job ID: [id number]
[2019-10-11 20:51] LABS: #Eosinphils 0.1 thou/uL (0.0-0.7); #Lymphocytes 0.6 thou/uL (1.20-3.40); #Monocytes 0.3 thou/uL (0.11-0.59); #Neutrophils 2.1 thou/uL (1.40-6.50); %Basophils 0.7 % (0.0-1.0); %Eosinophils 3.6 % (0.0-10.0); %Lymphocytes 19.7 % (21.0-51.0); %Monocytes 9.4 % (0.0-10.0); %Neutrophils 66.6 % (42.0-75.0); Hemoglobin 7.3 g/dL (12.0-16.0); Mean Corpuscular HGB CONC 32.5 g/dL (32.0-36.0); Mean Corpuscular Hemoglobin 29.7 pg (27.0-31.0); Mean Corpuscular Volume 91.3 fL (78.0-98.0); Mean Platelet Volume 6.6 fL (7.4-10.4); Platelet Count 151 thou/uL (130-400); Red Blood Cell (RBC) Count 2.47 mill/uL (4.20-5.40); White Blood Cell (WBC) Count 3.2 thou/uL (4.8-10.8)
[2019-10-11 21:11] LABS: Anion Gap 8 mmol/L (10-20); BUN (Urea Nitrogen) 15 mg/dL (9.8-20.1); Calc. Creatinine Clearance 57 mL/min (70-130); Calcium 7.9 mg/dL (7.8-10.44); Carbon Dioxide 29 mmol/L (23-31); Chloride 101 mmol/L (98-107); Estimated GFR-MDRD 90; Glucose 98 mg/dL (83-110); Sodium 134 mmol/L (136-145)
[2019-10-11] MEDS ORDERED: [UNRECOGNIZED DRUG - OTHER] IV SCH (21:45)
[2019-10-11] MEDS ORDERED: SODIUM ACETATE IV SCH (21:45)
[2019-10-11] MEDS ORDERED: SODIUM CHLORIDE IV SCH (21:45)
[2019-10-11] MEDS ORDERED: POTASSIUM CHLORIDE IV SCH (21:45)
[2019-10-12] MEDS: D5 1/2 NS w/20 mEq KCL 1,000 ML IV SCH ×2 (03:51→11:55)
[2019-10-12 06:23] LABS: #Eosinphils 0.2 thou/uL (0.0-0.7); #Lymphocytes 0.5 thou/uL (1.20-3.40); #Monocytes 0.4 thou/uL (0.11-0.59); #Neutrophils 2.1 thou/uL (1.40-6.50); %Basophils 0.9 % (0.0-1.0); %Eosinophils 6.3 % (0.0-10.0); %Lymphocytes 16.2 % (21.0-51.0); %Monocytes 12.7 % (0.0-10.0); %Neutrophils 63.9 % (42.0-75.0); Hemoglobin 7.2 g/dL (12.0-16.0); Mean Corpuscular HGB CONC 32.8 g/dL (32.0-36.0); Mean Corpuscular Hemoglobin 29.8 pg (27.0-31.0); Mean Platelet Volume 7.3 fL (7.4-10.4); Platelet Count 159 thou/uL (130-400); RBC Distribution Width 15.4 % (11.5-14.5); White Blood Cell (WBC) Count 3.2 thou/uL (4.8-10.8)
[2019-10-12] MEDS: Albuterol Sulfate 2.5 mg/3 ml Neb NEB SCH ×4 (06:45→18:19)
[2019-10-12] MEDS: Pantoprazole 40 MG VIAL IVP SCH (09:17)
[2019-10-12] MEDS: Enoxaparin Sodium 40 MG/0.4 ML SYRINGE SC SCH (09:17)
[2019-10-12] MEDS ORDERED: SODIUM ACETATE IV SCH (11:45)
[2019-10-12] MEDS ORDERED: POTASSIUM CHLORIDE IV SCH (11:45)
[2019-10-12] MEDS ORDERED: [UNRECOGNIZED DRUG - OTHER] IV SCH (11:45)
[2019-10-12] MEDS ORDERED: SODIUM CHLORIDE IV SCH (11:45)
--- NOTE | 2019-10-12 12:41 | PRG ---
DATE OF SERVICE: 10/12/2019 Ms. Soler wants to go home and she has been told by the surgeons that she go home tomorrow probably. She is tolerating diet, low residue. She is having bowel movements. She is up walking. PHYSICAL EXAMINATION: VITAL SIGNS: Temperature is 98.3, pulse 80, blood pressure 115/58. ABDOMEN: Soft, nontender. LABORATORY DATA: White count 3.2, hemoglobin 7.2, platelet count 159. BMP normal. ASSESSMENT: 1. Gastric outlet obstruction secondary to edema from repair of perforated ulcer from previous admission, much improved. 2. Malnutrition, much improved, tolerating diet. It looks like they are going to start weaning her total parenteral nutrition. 3. Anemia, mostly iron deficiency. She has received IV iron twice when she goes home. She goes home with some oral iron and a proton pump inhibitor. 4. Last time she was here she did not picker her medicines. When she went to pharmacy, they told her it was not a "prescription." She should go home either on 40 of omeprazole daily, which she can get [id number] or 40 of pantoprazole daily. 5. She got some cirrhosis and is compensated, but she will need to continue hepatoma screening and I told her we can do it at our office every 6 months. 6. She has hepatitis C. I told her we can treat that. We can do that at my office as well and we will see her in a month after discharge. The plan is for to go home tomorrow. At this time, we will sign off from a GI standpoint. Dr. Holloway will be taking over the GI service tomorrow. If any questions remain, you can call me on my cell [phone]. She needs to be re-evaluated. He will be available to do that. Job ID: [id number]
--- NOTE | 2019-10-12 13:45 | PRG ---
DATE OF SERVICE: 10/12/2019 SUBJECTIVE: Ms. Soler is hospital day #6 following admission for nausea and vomiting with gastric outlet obstruction. She is status post repair of a perforated pyloric channel ulcer on September 23. When she was discharged home from the hospital, she never took any acid reduction medication and returned to the hospital with edema and inflammation related to her ulcer. She underwent endoscopy per Dr. Horn. She has been receiving intravenous PPIs. She tolerated both a clear liquid and full liquid diet and was advanced up to a solid diet today. She is anxious for discharge. She denies any problems. She is apparently ambulating some, but not much. She tells me she has had a bowel movement and flatus. OBJECTIVE: VITAL SIGNS: On examination, she is afebrile, pulse is 80, and blood pressure 115/58. LUNGS: Clear to auscultation. ABDOMEN: Soft and nontender. Her prior laparoscopic incisions were nicely healed. Bowel sounds are normoactive. LABORATORY DATA: Her CBC from today shows a white blood cell count of 3.2 and a hemoglobin of 7.2. She has a normal differential. Chemistries yesterday revealed essentially normal electrolytes. Her sugars are normal. ASSESSMENT AND PLAN: The patient is stable from a surgical standpoint. Today, I will change her over to oral medications including her PPI. Wean her TPN and it should be discontinued tonight. Assuming she is tolerating her diet and remains stable, then she should be ready for discharge tomorrow. She will need to be discharged on oral iron as well as oral proton pump inhibitor. Job ID: [id number]
--- NOTE | 2019-10-12 13:58 | PDOC.HOSPP ---
- Subjective Encounter Date: 10/12/19 Subjective: Tolerating low residue diet. No new complains - Objective Vital Signs & Weight: Vital Signs (12 hours) Temp Pulse Resp BP Pulse Ox 10/12/19 10:51 98.3 F 80 16 115/58 L 98 10/12/19 10:09 71 16 10/12/19 08:00 95 10/12/19 07:16 98.3 F 72 16 125/60 95 10/12/19 06:45 67 16 97 10/12/19 03:53 98.3 F 72 18 126/53 L 98 Weight Admit Weight 110 lb Weight 110 lb I&O: 10/11/19 10/12/19 10/13/19 06:59 06:59 06:59 Intake Total 4585 2410 240 Balance 4585 2410 240 Result Diagrams: 10/12/19 05:55 10/11/19 20:43 Additional Labs: Accuchecks 10/12/19 10/12/19 10/12/19 11:46 05:28 00:00 POC Glucose 136 H 109 128 H 10/11/19 18:06 POC Glucose 135 H Hospitalist ROS - Medication Medications: Active Medications Generic Name Dose Route Start Last Admin Trade Name Freq PRN Reason Stop Dose Admin Acetaminophen 650 mg 10/07/19 13:28 10/10/19 05:59 Tylenol PO 650 mg Q4H PRN Administration Headache/Fever/Mild Pain (1-3) Al Hydroxide/Mg Hydroxide 15 ml 10/11/19 10:47 10/11/19 11:24 Maalox PO 15 ml Q6H PRN Administration Heartburn or Indigestion Albuterol Sulfate 2.5 mg 10/07/19 15:00 10/12/19 10:09 Ventolin NEB 2.5 mg QID-RT MARYAM Administration Enoxaparin Sodium 40 mg 10/08/19 09:00 10/12/19 09:17 Lovenox SC 40 mg 0900 MARYAM Administration Potassium Chloride/Dextrose/Sod Cl 1,000 mls @ 30 mls/hr 10/12/19 11:42 10/11 11:55 D5 1/2 Ns W/20 Meq Kcl IV Not Given .Q24H MARYAM Ondansetron HCl 4 mg 10/10/19 06:38 10/10/19 06:42 Zofran IVP 4 mg Q6H PRN Administration Nausea/Vomiting Sodium Chloride 10 ml 10/10/19 09:00 10/12/19 09:18 Flush - Normal Saline IVF Not Given Q12HR MARYAM - Exam General Appearance: awake alert ENT: normocephalic atraumatic Neck: supple, no JVD Heart: RRR, no murmur, no gallops, no rubs, normal peripheral pulses Respiratory: CTAB, no wheezes, no rales, no ronchi, normal chest expansion Gastrointestinal: soft, non-tender, non-distended, normal bowel sounds Hosp A/P (1) Gastric outlet obstruction Code(s): K31.1 - ADULT HYPERTROPHIC PYLORIC STENOSIS Status: Acute (2) PUD (peptic ulcer disease) Code(s): K27.9 - PEPTIC ULC, SITE UNSP, UNSP AC OR CHR, W/O HEMOR OR PERF Status: Acute (3) Anemia Code(s): D64.9 - ANEMIA, UNSPECIFIED Status: Chronic Qualifiers: Anemia type: iron deficiency (4) Moderate protein-calorie malnutrition Code(s): E44.0 - MODERATE PROTEIN-CALORIE MALNUTRITION Status: Chronic - Plan Now on oral PPI and tolerating diet. TPN will be weaned off tonight. Plan to DC tomorrow.
[2019-10-12] MEDS: Ferrous Sulfate 325 MG TAB PO SCH (16:50)
[2019-10-13] MEDS: Albuterol Sulfate 2.5 mg/3 ml Neb NEB SCH ×2 (07:35→10:37)
[2019-10-13] MEDS: Enoxaparin Sodium 40 MG/0.4 ML SYRINGE SC SCH (07:51)
[2019-10-13] MEDS: Ferrous Sulfate 325 MG TAB PO SCH (07:52)
[2019-10-13] MEDS: D5 1/2 NS w/20 mEq KCL 1,000 ML IV SCH (10:54)
[2019-10-13 11:35] VITALS: BP 107/61; TEMP 98.1
--- NOTE | 2019-10-13 13:27 | EKG ---
Test Reason : Blood Pressure : / mmHG Vent. Rate : 064 BPM Atrial Rate : 064 BPM P-R Int : 160 ms QRS Dur : 084 ms QT Int : 434 ms P-R-T Axes : 074 074 069 degrees QTc Int : 447 ms Normal sinus rhythm Normal ECG Confirmed by JUAN JESUS DO ([id number]), book editor CRISTI COSTA ([id number]) on 10/13/2019 1:27:24 PM Referred By: Confirmed By:JUAN JESUS DO
--- NOTE | 2019-10-13 17:16 | DIS ---
DATE OF ADMISSION: 10/07/2019 DATE OF DISCHARGE: 10/13/2019 DISCHARGE DIAGNOSES: 1. Gastric outlet obstruction. 2. Peptic ulcer disease. 3. Anemia due to acute blood loss. 4. Moderate protein-calorie malnutrition. DISCHARGE MEDICATIONS: 1. Ferrous sulfate 325 mg orally twice daily. 2. Pantoprazole 40 mg orally twice daily. 3. Metoprolol succinate 25 mg orally daily. 4. MiraLAX 17 g orally daily. HISTORY OF PRESENT ILLNESS AND HOSPITAL COURSE: The patient is a 79-year-old female with past medical history of COPD, hypertension, chronic hepatitis C, and cirrhosis, who was recently hospitalized for perforated pyloric channel ulcer. The patient was discharged from the hospital on PPI; however, she did not bulk picker her medications. On her prior hospitalization, the patient had perforated pyloric channel ulcer, status post laparoscopic repair and omental patch placement. She presented with increasing abdominal pain, nausea, and vomiting, and imaging studies showed finding concerning of gastric outlet obstruction. Gastroenterology Service was consulted, and the patient underwent repeat EGD, which showed severe esophagitis consistent with recurrent vomiting. Normal stomach except for some edematous changes. Distorted duodenum with edema. Ulcer was noted in the pulp. Biopsies were taken from the margin. Beyond this, duodenal mucosa and the second and the third portions are somewhat nodular. Biopsies were taken and sent to Pathology. Gastric outlet obstruction was suspected to be related to edema, both postsurgical and mucosal exacerbated by the fact that the patient was not taking her PPI after discharge. The patient was managed initially with IV PPI with nasogastric tube on suction, and TPN was subsequently initiated. Her symptoms gradually improved over the duration of her hospital stay, and NG tube was discontinued. The patient was started on liquid diet, which was advanced gradually. On the day of discharge, the patient was able to tolerate a soft diet, and TPN was discontinued. Job ID: [id number]
== END 2019-10-13 12:45 | disposition home or self-care (01) | DRG 381 ==
LOC: ERS 09:47 → SURG A 11:55
PROVIDERS: ADMIT Internal Medicine; ATTEND Internal Medicine
PROC: 0DB98ZX Excision of Duodenum, Via Natural or Artificial Opening Endoscopic, Diagnostic (ICD-10-PCS; principal; 2019-10-08)
PROC: 0DB78ZX Excision of Stomach, Pylorus, Via Natural or Artificial Opening Endoscopic, Diagnostic (ICD-10-PCS; 2019-10-08)
PROC: 06HY33Z Insertion of Infusion Device into Lower Vein, Percutaneous Approach (ICD-10-PCS; 2019-10-09)
DX: K31.1 Adult hypertrophic pyloric stenosis (principal); D62 Acute posthemorrhagic anemia; E44.0 Moderate protein-calorie malnutrition; Z68.1 Body mass index [BMI] 19.9 or less, adult; K25.9 Gastric ulcer, unspecified as acute or chronic, without hemorrhage or perforation; K20.8 Other esophagitis; K26.9 Duodenal ulcer, unspecified as acute or chronic, without hemorrhage or perforation; J44.9 Chronic obstructive pulmonary disease, unspecified; K70.30 Alcoholic cirrhosis of liver without ascites; E86.0 Dehydration; B18.2 Chronic viral hepatitis C; Z91.14 Patient's other noncompliance with medication regimen; Z79.899 Other long term (current) drug therapy
CPT/HCPCS: 36415; 36416; 74018; 74177; 80048; 80053; 81003; 81015; 82607; 82728; 82746; 83540; 83550; 83605; 83690; 83735; 84100; 84134; 85025; 85610; 88305; 88312; 93005; 94640; 96365; 96375; C9113; J1650; J1815; J2270; J2405; J2543; J2704; J2916; J3475; J3480; J3490; J7611; J7620; Q0162; Q9967